=== PATIENT | female | born 1965 | race Caucasian/White ===

== ENCOUNTER 2016-12-10 17:15 | Emergency (ER) | payer MEDICAID | END 2016-12-10 17:30 | disposition home or self-care (01) | DX: Z76.0 Encounter for issue of repeat prescription (principal); M54.9 Dorsalgia, unspecified; G89.29 Other chronic pain; J45.909 Unspecified asthma, uncomplicated; F17.200 Nicotine dependence, unspecified, uncomplicated; R03.0 Elevated blood-pressure reading, without diagnosis of hypertension ==

== ENCOUNTER 2017-11-07 16:40 | Emergency (ER) | payer MEDICAID ==
[2017-11-07 16:48] VITALS: BP 155/90
[2017-11-07] MEDS ORDERED: DEXAMETHASONE 10 MG/ML VIAL PO STA (17:10)
--- NOTE | 2017-11-07 17:12 | ED Physician Documentation ---
History of Present Illness - Stated complaint Stated Complaint: MED REFILL - Chief complaint Chief Complaint: General - History obtained from History obtained from: Patient - History of Present Illness Timing: How many days ago (3) - Additonal information Additional information: 52-year-old female with a history of neuritis has recently moved back to [facility] from [place] and she has stopped taking OxyContin about a month ago and she has run out of oxycodone 2 days ago. She usually takes 600 mg of gabapentin 4 times a day and she is now run out of this as well and is asking for refill.She has had this issue previously a number of times moving back and forth between here in [place] [facility]. Review of Systems Constitutional: denies: Fever, Chills Eyes: denies: Decreased vision Ears: denies: Ear pain Nose: denies: Congestion Throat: denies: Sore throat Cardiac: denies: Chest pain / pressure, Palpitations Respiratory: denies: Dyspnea, Cough GI: denies: Abdominal Pain, Nausea, Vomiting, Diarrhea : denies: Dysuria, Frequency Skin: denies: Rash Musculoskeletal: reports: Back pain, Extremity pain, Extremity swelling. denies : Neck pain Neurologic: denies: Generalized weakness, Focal weakness, Numbness PD PAST MEDICAL HISTORY - Past Medical History Past Medical History: Yes Cardiovascular: None Respiratory: Asthma, Pneumonia Neuro: None Endocrine/Autoimmune: None GI: None DITCH TENDER: None : None HEENT: None Psych: None Musculoskeletal: Chronic back pain Derm: None - Past Surgical History Past Surgical History: Yes General: Cholecystectomy Ortho: Spine surgery /DITCH TENDER: section, Hysterectomy - Present Medications Home Medications: Ambulatory Orders Medication Instructions Recorded Confirmed Morphine ER [Morphine ER] 15 mg ORAL BID 08/03/16 11/07/17 Oxycodone HCl/Acetaminophen 1 each PO Q6H PRN #15 tablet 08/16/16 11/07/17 [Percocet 5-325 mg Tablet] Gabapentin 600 mg PO QID #30 tablet 12/10/16 11/07/17 Gabapentin [Gralise] 600 mg PO QID #40 tab.er.24h 11/07/17 - Allergies Allergies/Adverse Reactions: Allergies Allergy/AdvReac Type Severity Reaction Status Date / Time No Known Drug Allergies Allergy Verified 11/07/17 16:48 - Social History Does the pt smoke?: Yes Smoking Status: Current every day smoker Does the pt drink ETOH?: No Does the pt have substance abuse?: No - Immunizations Immunizations are current?: Yes Immunizations: TDAP >10years/unknown - POLST Patient has POLST: No PD ED PE NORMAL - Vitals Vital signs reviewed: Yes (Hypertensive and tachycardic to 100) - General General: Alert and oriented X 3, No acute distress, Well developed/nourished - HEENT HEENT: Atraumatic, PERRL, EOMI - Neck Neck: Supple, no meningeal sign - Respiratory Respiratory: No respiratory distress - Back Back: No CVA TTP - Derm Derm: Normal color, Warm and dry, No rash - Extremities Extremities: No deformity, Other (There is trace edema bilaterally and there is some postinflammatory hyperpigmentation on the right proximal anterior calf.) - Neuro Neuro: Alert and oriented X 3, field sales trainer 2-12 intact, No motor deficit, No sensory deficit, Normal speech Eye Opening: Spontaneous Motor: Obeys Commands Verbal: Oriented GCS Score: 15 - Psych Psych: Normal mood, Normal affect Results - Vitals Vitals: Vital Signs - 24 hr 11/07/17 16:46 Temperature 37.1 C Heart Rate 102 H Respiratory 18 Rate Blood Pressure 155/90 H O2 Saturation 98 Oxygen O2 Source [Without Activity] 4L via NC O2 Source Room air PD MEDICAL DECISION MAKING - ED course Complexity details: considered differential, d/w patient ED course: 52-year-old female who usually takes gabapentin 600 mg 4 times daily has run out. She has also run out of her narcotic is been 2 days and she has not had symptoms of withdrawal. I have offered to give the patient 10 mg of dexamethasone and we will refill her gabapentin. I have indicated to her that we are not able to provide narcotic prescription for as she is on narcotics chronically. Departure - Departure Disposition: 01 Home, Self Care Clinical Impression: Medication refill Condition: Stable Instructions: ED Neuropathy Peripheral Follow-Up: Kody Lang MD [Physician No Access] - Prescriptions: Gabapentin [Gralise] 600 mg PO QID #40 tab.er.24h
== END 2017-11-07 17:34 | disposition home or self-care (01) ==
LOC: ED 16:40
DX: M79.2 Neuralgia and neuritis, unspecified (principal); G89.29 Other chronic pain; F17.200 Nicotine dependence, unspecified, uncomplicated
CPT/HCPCS: 99282; 99283

== ENCOUNTER 2018-01-25 14:54 | Emergency (ER) | payer SELFPAY ==
[2018-01-25 15:27] LABS: BASOPHILS # (AUTO) 0.1 10^3/uL (0.0-0.1); BASOPHILS % (AUTO) 1.3 %; EOSINOPHILS # (AUTO) 0.1 10^3/uL (0.0-0.7); EOSINOPHILS % (AUTO) 1.1 %; HGB - HEMOGLOBIN 14.1 g/dL (12.0-16.0); LYMPHOCYTES # (AUTO) 3.4 10^3/uL (1.5-3.5); LYMPHOCYTES % (AUTO) 29.2 %; MEAN CORPUSCULAR HEMOGLOBIN 33.2 pg (27.0-31.0); MEAN CORPUSCULAR HGB CONC 34.1 g/dL (32.0-36.0); MEAN CORPUSCULAR VOLUME 97.4 fL (81.0-99.0); MEAN PLATELET VOLUME 7.1 fL (7.9-10.8); MONOCYTES # (AUTO) 0.5 10^3/uL (0.0-1.0); MONOCYTES % (AUTO) 4.4 %; NEUTROPHILS # (AUTO) 7.5 10^3/uL (1.5-6.6); PLT - PLATELET COUNT 287 10^3/uL (130-450); RED BLOOD COUNT 4.26 10^6/uL (4.20-5.40); RED CELL DISTRIBUTION WIDTH 13.5 % (12.0-15.0); WHITE BLOOD COUNT 11.6 x10^3/uL (4.8-10.8)
[2018-01-25 15:39] LABS: ALBUMIN 4.1 g/dL (3.2-5.5); ALBUMIN/GLOBULIN RATIO 1.1 (1.0-2.2); ALKALINE PHOSPHATASE 69 IU/L (42-121); ALT ALANINE AMINOTRANSFERASE < 10 IU/L (10-60); AST ASPARTATE AMINOTRANSFERASE 15 IU/L (10-42); BILIRUBIN,TOTAL 0.5 mg/dL (0.2-1.0); BUN - BLOOD UREA NITROGEN 11 mg/dL (6-20); CALCIUM 9.4 mg/dL (8.5-10.3); CARBON DIOXIDE - CO2 24 mmol/L (21-32); CHLORIDE 107 mmol/L (101-111); CREATININE 0.7 mg/dL (0.4-1.0); GFR - MDRD 88 (>89); GLUCOSE 141 mg/dL (70-100); LIPASE 46 U/L (22-51); SODIUM 139 mmol/L (135-145)
[2018-01-25 15:40] VITALS: BP 141/93
[2018-01-25] MEDS ORDERED: KETOROLAC 60 MG/2 ML VIAL IVP STA (17:58)
[2018-01-25] MEDS ORDERED: ONDANSETRON 4 MG/2 ML VIAL IVP STA (17:58)
[2018-01-25] MEDS ORDERED: FAMOTIDINE 20 MG TABLET PO STA (17:58)
[2018-01-25] MEDS ORDERED: SODIUM CHLORIDE 0.9% 1,000 ML IV ONE (17:58)
[2018-01-25 18:09] LABS: BILIRUBIN,URINE NEGATIVE (NEGATIVE); GLUCOSE, URINE (UA) NEGATIVE (NEGATIVE); KETONES,URINE (UA) NEGATIVE (NEGATIVE); LEUKOCYTE ESTERASE, URINE NEGATIVE (NEGATIVE); NITRITE,URINE NEGATIVE (NEGATIVE); OCCULT BLOOD,URINE NEGATIVE (NEGATIVE); PH,URINE 5.5 PH (5.0-7.5); PROTEIN,URINE NEGATIVE (NEGATIVE); UROBILINOGEN,URINE 0.2 (NORMAL) E.U./dL (NORMAL)
[2018-01-25] MEDS ORDERED: IOPAMIDOL-300 100 ML VIAL ONE (18:09)
[2018-01-25 18:20] LABS: CLARITY,URINE CLEAR (CLEAR); HCG UR QUAL NEGATIVE
[2018-01-25] MEDS ORDERED: IOPAMIDOL-300 100 ML VIAL IVP ONE (18:24)
--- NOTE | 2018-01-25 19:07 | CT Preliminary Report ---
Exam: CT ABDOMEN/PELVIS W/ IMPRESSION: 1. 5.8 x 3.5 x 4.0 cm fat filled hernia left lateral mid anterior abdominal wall, approximately 7 cm superior to the typical spigelian hernia site. Small amount of uniform edema within the hernia sac as well as the subjacent intra-abdominal mesentery consistent with some degree of vascular compromise/e ntrapment. No bowel involvement. 2. Thoracic epidural neurostimulator. [facility] SITE ID: [id number]
--- NOTE | 2018-01-25 19:18 | CT Report ---
EXAM: CT ABDOMEN AND PELVIS EXAM DATE: 01/25/2018 06:15 PM. CLINICAL HISTORY: Cholecystectomy, appendectomy, three C-sections, back surgery, nerve stimulator imp lant. Multiple abdominal hernia repairs. Patient presents now with left upper abdominal pain. COMPARISONS: 03/24/2009. Chest CT 06/30/2015. TECHNIQUE: Routine helical CT imaging was performed through the abdomen and pelvis. IV contrast: 100 mL ISOVUE 300. Enteric contrast: No. Reconstructions: Coronal and sagittal. In accordance with CT protocol optimization, one or more of the following dose reduction techniques w ere utilized for this exam: automated exposure control, adjustment of mA and/or KV based on patient s ize, or use of iterative reconstructive technique. FINDINGS: Lung Bases: Unremarkable. Liver: Fatty infiltration. Gallbladder/Bile Ducts: Cholecystectomy. No biliary duct dilatation. Spleen: Normal. Pancreas: Normal. Adrenal Glands: Normal. Kidneys: Normal. No masses or hydronephrosis. Peritoneal Cavity/Bowel: Previous infraumbilical ventral hernia repair. New 5.8 x 3.5 x 4 cm fat-filled hernia left mid anterior abdominal wall, at the level of the umbilicu s. Small amount of edema within this hernia, as well as a small amount of edema in the subjacent omen mauricio. No involvement of the bowel. Hernia neck measures 1.8 cm. Large and small bowel of normal caliber. No free air, adenopathy nor free fluid. Appendectomy. Pelvic Organs: Hysterectomy. No stones in the small caliber urinary bladder. No free fluid nor adnexa l mass lesions. Vasculature: No aneurysms or other significant abnormality. Bones: Thoracic epidural neurostimulator with the generator located in the anterior subcutaneous soft tissues right pelvis. Remote L4-L5 and L5-S1 fusion. Other: None. IMPRESSION: 1. 5.8 x 3.5 x 4.0 cm fat-filled hernia left lateral mid anterior abdominal wall, approximately 7 cm superior to the typical spigelian hernia site. Small amount of uniform edema within the hernia sac, a s well as the subjacent intra-abdominal mesentery consistent with some degree of vascular compromise/ entrapment. No bowel involvement. 2. Thoracic epidural neurostimulator. [facility] Referring Provider Line: [phone] SITE ID: [id number]
--- NOTE | 2018-01-25 19:55 | ED Physician Documentation ---
PD HPI ABD PAIN - Stated complaint Stated Complaint: ABD PX - Chief complaint Chief Complaint: Abd Pain - History obtained from History obtained from: Patient - History of Present Illness Timing - onset: How many weeks ago (2-3 of worse pain, with intermittent vomiting and has noted some weight loss due to nausea and pain with eating. Has tenderness left abd hernia for about 4 months, but nausea and worse pain the past 2-3 weeks. Seen in office with Dx of hernia and is having referrals for Surgery but insurance issues with coverage, per patient.) Timing - details: Gradual onset, Intermittant, Waxing and waning Quality: Aching, Sharp, Pain Location: LLQ (with a lump feeling there as well.) Radiation: Lower back Improved by: Laying still. No: Eating Worsened by: Eating, Moving, Position (left side), Palpation Associated symptoms: Nausea, Vomiting. No: Fever, Diarrhea, Constipation, Dysuria, Hematuria Similar symptoms before: Diagnosis (incisional hernia) Recently seen: Clinic Review of Systems Constitutional: denies: Fever, Chills Nose: denies: Rhinorrhea / runny nose, Congestion Throat: denies: Sore throat Cardiac: denies: Chest pain / pressure, Palpitations Respiratory: denies: Dyspnea, Cough GI: reports: Abdominal Pain, Nausea, Vomiting. denies: Constipation, Diarrhea ( but loose stools) : denies: Dysuria, Frequency Skin: denies: Rash, Lesions PD PAST MEDICAL HISTORY - Past Medical History Past Medical History: Yes Cardiovascular: None Respiratory: Asthma, Pneumonia Neuro: None Endocrine/Autoimmune: None GI: None PRISON CLASSIFICATION COUNSELOR: None : None HEENT: None Psych: None Musculoskeletal: Chronic back pain Derm: None - Past Surgical History Past Surgical History: Yes General: Cholecystectomy Ortho: Spine surgery /PRISON CLASSIFICATION COUNSELOR: section, Hysterectomy - Present Medications Home Medications: Ambulatory Orders Medication Instructions Recorded Confirmed Morphine ER [Morphine ER] 15 mg ORAL BID 08/03/16 01/25/18 Oxycodone HCl/Acetaminophen 1 each PO Q6H PRN #15 tablet 08/16/16 01/25/18 [Percocet 5-325 mg Tablet] Gabapentin 600 mg PO QID #30 tablet 12/10/16 01/25/18 Gabapentin [Gralise] 600 mg PO QID #40 tab.er.24h 11/07/17 01/25/18 Docusate Sodium 100 mg PO DAILY #30 capsule 01/25/18 Gabapentin 600 mg PO QID #28 tablet 01/25/18 Ondansetron HCl [Zofran] 4 mg PO Q6H PRN #20 tablet 01/25/18 Oxycodone HCl/Acetaminophen 1 each PO Q6H PRN #20 tablet 01/25/18 [Percocet 5-325 mg Tablet] - Allergies Allergies/Adverse Reactions: Allergies Allergy/AdvReac Type Severity Reaction Status Date / Time No Known Drug Allergies Allergy Verified 01/25/18 17:43 - Social History Does the pt smoke?: Yes Smoking Status: Current every day smoker Does the pt drink ETOH?: No Does the pt have substance abuse?: No - Immunizations Immunizations are current?: Yes Immunizations: TDAP >10years/unknown - POLST Patient has POLST: No PD ED PE NORMAL - Vitals Vital signs reviewed: Yes - General General: Alert and oriented X 3, No acute distress, Well developed/nourished - HEENT HEENT: Moist mucous membranes, Pharynx benign - Neck Neck: Supple, no meningeal sign, No adenopathy - Cardiac Cardiac: RRR, No murmur - Respiratory Respiratory: Clear bilaterally - Abdomen Abdomen: Normal bowel sounds, Soft, Non distended, No organomegaly, Other ( tender left mid to lower abd with palpable hernia mass that is reducible but tender. No redness nor rash of the skin. ) - Female Female : Deferred - Rectal Rectal: Deferred - Back Back: No CVA TTP - Derm Derm: Normal color, Warm and dry, No rash - Neuro Neuro: Alert and oriented X 3, No motor deficit, Normal speech Results - Vitals Vitals: Vital Signs - 24 hr 01/25/18 15:04 Temperature 36.9 C Heart Rate 106 H Respiratory 18 Rate Blood Pressure 141/93 H O2 Saturation 100 Oxygen O2 Source [Without Activity] 4L via NC O2 Source Room air - Labs Labs: Laboratory Tests 01/25/18 01/25/18 01/25/18 15:24 15:24 17:45 WBC 11.6 H RBC 4.26 Hgb 14.1 Hct 41.5 MCV 97.4 MCH 33.2 H MCHC 34.1 RDW 13.5 Plt Count 287 MPV 7.1 L Neut # 7.5 H Lymph # 3.4 [place] # 0.5 Eos # 0.1 Baso # 0.1 Absolute Nucleated RBC 0.01 Nucleated RBC % 0.1 Sodium 139 Potassium 3.6 Chloride 107 Carbon Dioxide 24 Anion Gap 8.0 BUN 11 Creatinine 0.7 Estimated GFR (MDRD) 88 L Glucose 141 H Calcium 9.4 Total Bilirubin 0.5 AST 15 ALT < 10 L Alkaline Phosphatase 69 Total Protein 8.0 Albumin 4.1 Globulin 3.9 Albumin/Globulin Ratio 1.1 Lipase 46 Urine Color YELLOW Urine Clarity CLEAR Urine pH 5.5 Ur Specific [place] 1.015 Urine Protein NEGATIVE Urine Glucose (UA) NEGATIVE Urine Ketones NEGATIVE Urine Occult Blood NEGATIVE Urine Nitrite NEGATIVE Urine Bilirubin NEGATIVE Urine Urobilinogen 0.2 (NORMAL) Ur Leukocyte Esterase NEGATIVE Ur Microscopic Review NOT INDICATED Urine Culture Comments NOT INDICATED Urine HCG, Qual NEGATIVE - Rads (name of study) abd CT Radiology: Prelim report reviewed (incisional hernia left side with some wall edema c/w vascular compromise of the hernia. No blockage/obstruction. ), EMP read contemporaneously PD MEDICAL DECISION MAKING - ED course Complexity details: reviewed results, considered differential, d/w patient, d/w professional housing consultant (Dr. Raleigh Nguyễn - is not Urgent/emergent indication for surgery. To follow up through office referral. ) Departure - Departure Disposition: 01 Home, Self Care Clinical Impression: Ventral hernia Qualifiers: Obstruction and gangrene presence: without obstruction or gangrene Qualified Code(s): K43.9 - Ventral hernia without obstruction or gangrene Abdominal pain Qualifiers: Abdominal location: left lower quadrant Qualified Code(s): R10.32 - Left lower quadrant pain Condition: Stable Record reviewed to determine appropriate education?: Yes Instructions: ED Hernia Inguinal Follow-Up: Anni Haas MD [Provider Admit Priv/Credential] - Toribio Nguyễn MD [Provider Admit Priv/Credential] - Prescriptions: Docusate Sodium 100 mg PO DAILY #30 capsule Gabapentin 600 mg PO QID #28 tablet Ondansetron HCl [Zofran] 4 mg PO Q6H PRN #20 tablet PRN Reason: Nausea / Vomiting Oxycodone HCl/Acetaminophen [Percocet 5-325 mg Tablet] 1 each PO Q6H PRN #20 tablet PRN Reason: Pain Comments: Drink lots of fluids. Ondansetron if needed for nausea. Docusate daily stool softener. Use Tylenol or Percocet if needed for pain. Follow-up with your primary care regarding the surgery referral and try to see if they can expedite that. Contact the surgery office. Discharge Date/Time: 01/25/18 20:09
== END 2018-01-25 20:09 | disposition home or self-care (01) ==
LOC: ED 14:54
DX: K43.9 Ventral hernia without obstruction or gangrene (principal); R10.32 Left lower quadrant pain; F17.200 Nicotine dependence, unspecified, uncomplicated
CPT/HCPCS: 36415; 74177; 80053; 81003; 81025; 83690; 85025; 96374; 96375; 99283; 99284; A9270; Q9967; 81001; 87086

== ENCOUNTER 2018-04-08 14:16 | Emergency (ER) | payer MEDICAID ==
--- NOTE | 2018-04-08 15:29 | ED Physician Documentation ---
History of Present Illness - Stated complaint Stated Complaint: MED REFILL - Chief complaint Chief Complaint: General - History obtained from History obtained from: Patient - Additonal information Additional information: 52-year-old female who takes Neurontin on a daily basis recently ran out secondaryTo changing physicians. The patient is scheduled to see her new physician this coming week. The patient is requesting a short supply until she sees her new physician. The patient has no acute medical complaint. Review of Systems Constitutional: denies: Fever, Chills Nose: denies: Congestion Cardiac: denies: Chest pain / pressure GI: denies: Abdominal Pain : denies: Dysuria Neurologic: denies: Generalized weakness PD PAST MEDICAL HISTORY - Past Medical History Past Medical History: Yes Cardiovascular: None Respiratory: Asthma, Pneumonia Endocrine/Autoimmune: None GI: None COUNCILOR: None : None HEENT: None Psych: None Musculoskeletal: Chronic back pain Derm: None - Past Surgical History Past Surgical History: Yes General: Cholecystectomy Ortho: Spine surgery /COUNCILOR: section, Hysterectomy - Present Medications Home Medications: Ambulatory Orders Medication Instructions Recorded Confirmed Gabapentin 600 mg PO QID #28 tablet 01/25/18 Gabapentin [Neurontin] 600 mg PO QID #40 tablet 04/08/18 - Allergies Allergies/Adverse Reactions: Allergies Allergy/AdvReac Type Severity Reaction Status Date / Time No Known Drug Allergies Allergy Verified 04/08/18 15:02 - Social History Does the pt smoke?: Yes Smoking Status: Current every day smoker Does the pt drink ETOH?: No Does the pt have substance abuse?: No - Immunizations Immunizations are current?: Yes Immunizations: TDAP >10years/unknown - POLST Patient has POLST: No PD ED PE NORMAL - General General: Alert and oriented X 3, No acute distress - HEENT HEENT: Atraumatic, PERRL, EOMI - Cardiac Cardiac: RRR, Strong equal pulses - Respiratory Respiratory: No respiratory distress - Neuro Neuro: Alert and oriented X 3, Normal speech - Psych Psych: Normal mood Results - Vitals Vitals: Vital Signs - 24 hr 04/08/18 15:00 Temperature 36.9 C Heart Rate 84 Respiratory 22 Rate Blood Pressure 146/111 H O2 Saturation 100 Oxygen O2 Source [Without Activity] 4L via NC O2 Source Room air PD MEDICAL DECISION MAKING - ED course ED course: The patient will be given a prescription for short supply of Neurontin. The patient understands that she cannot get refills on a regular basis in the emergency department. The patient will return for any worsening or any concerns - Sepsis Event Vital Signs: Vital Signs - 24 hr 04/08/18 15:00 Temperature 36.9 C Heart Rate 84 Respiratory 22 Rate Blood Pressure 146/111 H O2 Saturation 100 Oxygen O2 Source [Without Activity] 4L via NC O2 Source Room air Departure - Departure Disposition: Home, Self Care Clinical Impression: Medication refill Condition: Good Prescriptions: Gabapentin [Neurontin] 600 mg PO QID #40 tablet Comments: Please follow-up with your primary care physician for ongoing medication refills. Please return to the emergency department for worsening symptoms or new concerns
[2018-04-08 15:46] VITALS: BP 159/101
== END 2018-04-08 15:50 | disposition home or self-care (01) ==
LOC: ED 14:16
DX: Z76.0 Encounter for issue of repeat prescription (principal); F17.200 Nicotine dependence, unspecified, uncomplicated; G89.29 Other chronic pain; M54.9 Dorsalgia, unspecified
CPT/HCPCS: 99282; 99283

== ENCOUNTER 2018-08-02 16:53 | Emergency (ER) | payer MEDICAID ==
[2018-08-02 17:05] VITALS: BP 137/85
--- NOTE | 2018-08-02 17:37 | ED Physician Documentation ---
History of Present Illness - Stated complaint Stated Complaint: MED REFILL - Chief complaint Chief Complaint: General - Additonal information Additional information: hx from pt 53 f to ED needing refill gabapentin 600 mg QID which is the dose she has been taking for a ling time for neuropathy otherwise well / baseline needs 2 weeks before her appt with PMD Review of Systems Constitutional: denies: Fever Cardiac: denies: Chest pain / pressure Respiratory: reports: Wheezing (not new for her - smokes uses [facility]). denies: Dyspnea GI: denies: Abdominal Pain, Nausea, Vomiting, Diarrhea Endocrine: denies: Easy bruising / bleeding Immunocompromised: denies: Immunocompromised PD PAST MEDICAL HISTORY - Past Medical History Cardiovascular: None Respiratory: Asthma, Pneumonia Endocrine/Autoimmune: None GI: None COMMUNITY ENGAGEMENT REPRESENTATIVE: None : None HEENT: None Psych: None Musculoskeletal: Chronic back pain Derm: None - Past Surgical History Past Surgical History: Yes General: Cholecystectomy Ortho: Spine surgery /COMMUNITY ENGAGEMENT REPRESENTATIVE: section, Hysterectomy - Present Medications Home Medications: Ambulatory Orders Medication Instructions Recorded Confirmed Gabapentin 600 mg PO QID #28 tablet 01/25/18 Gabapentin [Neurontin] 600 mg PO QID #40 tablet 04/08/18 Gabapentin 600 mg PO QID #56 tablet 08/02/18 - Allergies Allergies/Adverse Reactions: Allergies Allergy/AdvReac Type Severity Reaction Status Date / Time No Known Drug Allergies Allergy Verified 08/02/18 17:02 - Social History Does the pt smoke?: Yes Smoking Status: Current every day smoker Does the pt drink ETOH?: No Does the pt have substance abuse?: No - Immunizations Immunizations are current?: Yes Immunizations: TDAP >10years/unknown - POLST Patient has POLST: No PD ED PE NORMAL - Vitals Vital signs reviewed: Yes - Cardiac Cardiac: RRR - Respiratory Respiratory: No respiratory distress, Other (mild whhezing good air moveemnt - pt states she smokes (is quitting) and this is now new, has NMDI) - Abdomen Abdomen: Soft, Non tender - Derm Derm: Normal color - Neuro Neuro: Alert and oriented X 3 Results - Vitals Vitals: Vital Signs - 24 hr 08/02/18 16:57 Temperature 37 C Heart Rate 88 Respiratory 16 Rate Blood Pressure 137/85 H O2 Saturation 99 Oxygen O2 Source [Without Activity] 4L via NC O2 Source Room air Departure - Departure Disposition: 01 Home, Self Care Clinical Impression: Medication refill Condition: Good Prescriptions: Gabapentin 600 mg PO QID #56 tablet
== END 2018-08-02 18:12 | disposition home or self-care (01) ==
LOC: ED 16:53
DX: Z76.0 Encounter for issue of repeat prescription (principal); G62.9 Polyneuropathy, unspecified; F17.200 Nicotine dependence, unspecified, uncomplicated
CPT/HCPCS: 99282; 99283

== ENCOUNTER 2018-08-19 18:16 | Emergency (ER) | payer MEDICAID ==
[2018-08-19 18:26] VITALS: BP 149/91
--- NOTE | 2018-08-19 18:48 | ED Physician Documentation ---
History of Present Illness - Stated complaint Stated Complaint: RX REFILL - Chief complaint Chief Complaint: General - History obtained from History obtained from: Patient - History of Present Illness Timing: Other (She has chronic back pain with neuropathy. She ran out of her gabapentin a few days ago and requests a refill. No other acute issues.) Review of Systems Constitutional: denies: Fever, Chills GI: denies: Abdominal Pain, Nausea, Vomiting : reports: Reviewed and negative PD PAST MEDICAL HISTORY - Past Medical History Cardiovascular: None Respiratory: Asthma, Pneumonia Endocrine/Autoimmune: None GI: None TRIM ATTACHER: None : None HEENT: None Psych: None Musculoskeletal: Chronic back pain Derm: None - Past Surgical History Past Surgical History: Yes General: Cholecystectomy Ortho: Spine surgery /TRIM ATTACHER: section, Hysterectomy - Present Medications Home Medications: Ambulatory Orders Medication Instructions Recorded Confirmed Gabapentin [Neurontin] 600 mg PO QID #40 tablet 04/08/18 Gabapentin 2 tab PO BID #40 capsule 08/19/18 - Allergies Allergies/Adverse Reactions: Allergies Allergy/AdvReac Type Severity Reaction Status Date / Time No Known Drug Allergies Allergy Verified 08/19/18 18:26 - Social History Does the pt smoke?: Yes Smoking Status: Current every day smoker Does the pt drink ETOH?: No Does the pt have substance abuse?: No - Immunizations Immunizations are current?: Yes Immunizations: TDAP >10years/unknown - POLST Patient has POLST: No PD ED PE NORMAL - Vitals Vital signs reviewed: Yes - General General: Alert and oriented X 3, No acute distress - Back Back: No spinal TTP - Neuro Neuro: Alert and oriented X 3, Normal speech - Psych Psych: Normal mood, Normal affect Results - Vitals Vitals: Vital Signs - 24 hr 08/19/18 18:23 Temperature 37.6 C H Heart Rate 115 H Respiratory 20 Rate Blood Pressure 149/91 H O2 Saturation 98 Oxygen O2 Source [Without Activity] 4L via NC O2 Source Room air PD MEDICAL DECISION MAKING - ED course ED course: This is her fourth visit to the emergency department this year for medication refill. We discussed that this was approaching inappropriate and further prescriptions must come from her primary care physician. Departure - Departure Disposition: 01 Home, Self Care Clinical Impression: Medication refill Back pain Qualifiers: Back pain location: low back pain Chronicity: chronic Back pain laterality: unspecified Sciatica presence: unspecified whether sciatica present Qualified Code(s): M54.5 - Low back pain; G89.29 - Other chronic pain Condition: Good Record reviewed to determine appropriate education?: Yes Instructions: ED Chronic Pain Management Prescriptions: Gabapentin 2 tab PO BID #40 capsule Comments: The policy of this emergency department is to not give more than 3 prescriptions for narcotics or other controlled substances in any 1 year. I encourage you to follow up with your primary care physician or to establish care with a primary care physician for ongoing pain management. You are always welcome to seek emergency care here for this or new issues but there will likely be limitations in the prescription of gabapentin. Your blood pressure was elevated today on check into the emergency department. This does not mean that you have hypertension, it is a common phenomenon to come to the emergency department and have elevated blood pressure. I recommend that you see your primary care physician within the week to have it rechecked when you are feeling better.
== END 2018-08-19 18:49 | disposition home or self-care (01) ==
LOC: ED 18:16
DX: Z76.0 Encounter for issue of repeat prescription (principal); G89.29 Other chronic pain; R03.0 Elevated blood-pressure reading, without diagnosis of hypertension; F17.200 Nicotine dependence, unspecified, uncomplicated
CPT/HCPCS: 99281; 99283

== ENCOUNTER 2018-10-08 20:09 | Emergency (ER) | payer MEDICAID ==
--- NOTE | 2018-10-08 21:08 | ED Physician Documentation ---
PD HPI ABD PAIN - Stated complaint Stated Complaint: ABD PX - Chief complaint Chief Complaint: Abd Pain - History obtained from History obtained from: Patient - History of Present Illness Timing - onset: Chronic Timing - details: Gradual onset, Waxing and waning Pain level now: 8 Quality: Pain Location: RLQ, LLQ Radiation: Other (no radiation) Improved by: Laying still Worsened by: Moving, Palpation Associated symptoms: No: Fever, Nausea, Vomiting, Diarrhea, Constipation Recently seen: Emergency Dept (two visits in July for rx refills) - Additional information Additional information: per patient: "a few things I need to get fixed", "but I'm having trouble with getting a physician because of my state insurance". 1) RLQ and right groin pain which patient says is due to a spinal cord stimulating device that has "moved". 2) LLQ pain which patient says is due to hernias. she says she was referred to a surgeon, she thinks in April or May of last year, but there was some problem with her insurance and the referring physician (Samina) was no longer able to take patient's insurance. Patient says she is trying to find a PMD but has been unsuccessful. 3) protrusion on right paralumbar area which she says is new and she suspects it is the wiring of her spinal cord stimulator Review of Systems Constitutional: reports: Reviewed and negative Cardiac: reports: Reviewed and negative Respiratory: reports: Reviewed and negative GI: reports: Abdominal Pain. denies: Nausea, Vomiting, Constipation, Diarrhea : denies: Dysuria, Frequency Musculoskeletal: reports: Back pain PD PAST MEDICAL HISTORY - Past Medical History Cardiovascular: None Respiratory: Asthma, Pneumonia Endocrine/Autoimmune: None GI: None POLYSOMNOGRAPH TECH: None : None HEENT: None Psych: None Musculoskeletal: Chronic back pain Derm: None - Past Surgical History Past Surgical History: Yes General: Cholecystectomy Ortho: Spine surgery /POLYSOMNOGRAPH TECH: section, Hysterectomy - Present Medications Home Medications: Ambulatory Orders Medication Instructions Recorded Confirmed Gabapentin [Neurontin] 600 mg PO QID #40 tablet 04/08/18 10/08/18 Oxycodone HCl/Acetaminophen 1 - 2 each PO Q6H PRN #14 tablet 10/09/18 [Percocet 5-325 mg Tablet] - Allergies Allergies/Adverse Reactions: Allergies Allergy/AdvReac Type Severity Reaction Status Date / Time No Known Drug Allergies Allergy Verified 10/08/18 20:13 - Social History Does the pt smoke?: Yes Smoking Status: Current every day smoker Does the pt drink ETOH?: No Does the pt have substance abuse?: No - Immunizations Immunizations are current?: Yes Immunizations: TDAP >10years/unknown - POLST Patient has POLST: No PD ED PE NORMAL - Vitals Vital signs reviewed: Yes - General General: Alert and oriented X 3, No acute distress, Well developed/nourished - Cardiac Cardiac: RRR, No murmur - Respiratory Respiratory: No respiratory distress, Clear bilaterally - Abdomen Abdomen: Soft, Non distended, Other (tender across lower abdomen, particularly in BLQ. There is a palpable, visible RLQ mass c/w spinal cord stimulator (sharp margins, rectangular in shape) without erythema or edema. LLQ tenderness without rebound or guarding. no palpable hernia) - Derm Derm: Normal color, Warm and dry, No rash Results - Vitals Vitals: Vital Signs - 24 hr 10/08/18 10/08/18 10/09/18 20:14 23:02 00:01 Temperature 37.0 C 36.9 C Heart Rate 110 H 93 91 Respiratory 18 18 16 Rate Blood Pressure 146/94 H 133/77 H 117/73 O2 Saturation 100 97 96 Oxygen O2 Source [] 4L via NC O2 Source Room air - Labs Labs: Laboratory Tests 10/08/18 10/08/18 21:54 21:54 WBC 12.7 H RBC 4.28 Hgb 14.0 Hct 42.3 MCV 98.6 MCH 32.7 H MCHC 33.2 RDW 14.4 Plt Count 251 MPV 7.4 L Neut # (Auto) 8.1 H Lymph # (Auto) 3.6 H [place] # (Auto) 0.7 Eos # (Auto) 0.2 Baso # (Auto) 0.1 Absolute Nucleated RBC 0.01 Nucleated RBC % 0.1 Sodium 141 Potassium 3.9 Chloride 108 Carbon Dioxide 24 Anion Gap 9.0 BUN 14 Creatinine 0.7 Estimated GFR (MDRD) 87 L Glucose 119 H Calcium 9.2 Total Bilirubin 0.3 AST 16 ALT 13 Alkaline Phosphatase 65 Total Protein 7.7 Albumin 4.1 Globulin 3.6 Albumin/Globulin Ratio 1.1 Lipase 42 - Rads (name of study) CT A/P Radiology: Prelim report reviewed, See rad report PD MEDICAL DECISION MAKING - ED course Complexity details: considered differential, d/w patient ED course: Patient had similar [facility] ED presentation January 2018, and problems with insurance were part of HPI on that visit, as well. w/u at this time is unremarkable for acute pathology. emphasized importance of continuing to pursue outpatient f/u for her recurrent abdominal pain Departure - Departure Disposition: Home, Self Care Clinical Impression: Abdominal pain Condition: Good Instructions: ED Abdominal Pain Unkn Cause Follow-Up: [facility] [Provider Group] [facility] [Provider Group] Prescriptions: Oxycodone HCl/Acetaminophen [Percocet 5-325 mg Tablet] 1 - 2 each PO Q6H PRN #14 tablet PRN Reason: pain Discharge Date/Time: 10/09/18 00:30
[2018-10-08 21:57] LABS: BASOPHILS # (AUTO) 0.1 10^3/uL (0.0-0.1); BASOPHILS % (AUTO) 0.8 %; EOSINOPHILS # (AUTO) 0.2 10^3/uL (0.0-0.7); EOSINOPHILS % (AUTO) 1.8 %; LYMPHOCYTES # (AUTO) 3.6 10^3/uL (1.5-3.5); LYMPHOCYTES % (AUTO) 28.4 %; MEAN CORPUSCULAR HEMOGLOBIN 32.7 pg (27.0-31.0); MEAN CORPUSCULAR HGB CONC 33.2 g/dL (32.0-36.0); MEAN CORPUSCULAR VOLUME 98.6 fL (81.0-99.0); MEAN PLATELET VOLUME 7.4 fL (7.9-10.8); MONOCYTES # (AUTO) 0.7 10^3/uL (0.0-1.0); MONOCYTES % (AUTO) 5.5 %; NEUTROPHILS # (AUTO) 8.1 10^3/uL (1.5-6.6); NEUTROPHILS % (AUTO) 63.5 %; PLT - PLATELET COUNT 251 10^3/uL (130-450); RED BLOOD COUNT 4.28 10^6/uL (4.20-5.40); RED CELL DISTRIBUTION WIDTH 14.4 % (12.0-15.0); WHITE BLOOD COUNT 12.7 x10^3/uL (4.8-10.8)
[2018-10-08 22:12] LABS: ALBUMIN 4.1 g/dL (3.2-5.5); ALBUMIN/GLOBULIN RATIO 1.1 (1.0-2.2); BILIRUBIN,TOTAL 0.3 mg/dL (0.2-1.0); CALCIUM 9.2 mg/dL (8.5-10.3); CREATININE 0.7 mg/dL (0.4-1.0); TOTAL PROTEIN 7.7 g/dL (6.7-8.2)
[2018-10-08] MEDS ORDERED: IOVERSOL 320 100 ML VIAL IVP ONE ×2 (22:28→22:56)
--- NOTE | 2018-10-08 23:15 | CT Report ---
Reason: abd. pain Procedure Date: 10/08/2018 Accession Number: [id number] / [id number] Procedure: CT - Abdomen/Pelvis W/ CPT Code: FULL RESULT: EXAM: CT ABDOMEN AND PELVIS EXAM DATE: 10/08/2018 10:47 PM. CLINICAL HISTORY: Abd. pain. COMPARISONS: ABDOMEN/PELVIS W/ 01/25/2018 6:15 PM. TECHNIQUE: Routine helical CT imaging was performed through the abdomen and pelvis. IV contrast: OPTIRAY 320 100mL. Enteric contrast: No. Reconstructions: Coronal and sagittal. In accordance with CT protocol optimization, one or more of the following dose reduction techniques were utilized for this exam: automated exposure control, adjustment of mA and/or KV based on patient size, or use of iterative reconstructive technique. FINDINGS: Lung Bases: Unremarkable. Liver: Normal. No masses. Gallbladder/Bile Ducts: Postoperative changes of cholecystectomy. No biliary dilatation. Spleen: Normal. Pancreas: Normal. Adrenal Glands: Normal. Kidneys: Normal. No masses or hydronephrosis. Peritoneal Cavity/Bowel: Normal. No free fluid, free air or adenopathy. No masses or acute inflammatory process. The appendix is well visualized and normal. Pelvic Organs: Normal. The bladder and visualized pelvic organs are within normal limits. Vasculature: No aneurysms or other significant abnormality. Bones: Degenerative changes. Postoperative changes in the lumbar spine. Other: Previous anterior abdominal wall hernia repair appears unchanged. Spinal stimulator appears stable. IMPRESSION: No evident etiology for patient's pain. RADIA
[2018-10-09 00:01] VITALS: BP 117/73
[2018-10-09] MEDS ORDERED: oxyCODONE 5 MG TABLET PO STA (00:27)
== END 2018-10-09 00:30 | disposition home or self-care (01) ==
LOC: ED 20:09
DX: R10.32 Left lower quadrant pain (principal); R10.31 Right lower quadrant pain; F17.200 Nicotine dependence, unspecified, uncomplicated
CPT/HCPCS: 36415; 74177; 80053; 83690; 85025; 99283; A9270; Q9967

== ENCOUNTER 2019-01-11 11:33 | Emergency (ER) | payer MEDICAID ==
[2019-01-11 11:47] VITALS: BP 146/116
[2019-01-11] MEDS ORDERED: KETOROLAC 30 MG/ML VIAL IVP STA (12:08)
--- NOTE | 2019-01-11 12:12 | ED Physician Documentation ---
PD HPI ABD PAIN - Stated complaint Stated Complaint: LOWER ABD PX - Chief complaint Chief Complaint: Abd Pain - History obtained from History obtained from: Patient - History of Present Illness Timing - onset: Other (53-year-old woman with chronic back pain has been dealing with pain from a left-sided mid abdominal hernia for a couple of years now. She has an appointment to see a surgeon at [facility] on January 27 for consult. Over the last 3 days it has been more painful and difficult to walk and now the pain radiates up towards the rib cage and down towards the groin. She is vomiting, but that is a chronic phenomenon and not worse than normal. Her bowel movements have been fairly normal to soft, but it hurts to strain.) Review of Systems Ten Systems: 10 systems reviewed and negative Constitutional: denies: Fever, Chills GI: reports: Abdominal Pain, Nausea, Vomiting. 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 : None HEENT: None Psych: None Musculoskeletal: Chronic back pain Derm: None - Past Surgical History Past Surgical History: Yes General: Cholecystectomy Ortho: Spine surgery /PAINTER AND BODY MECHANIC APPRENTICE: section, Hysterectomy - Present Medications Home Medications: Ambulatory Orders Medication Instructions Recorded Confirmed Gabapentin [Neurontin] 600 mg PO QID #40 tablet 04/08/18 01/11/19 Hydrocodone/Acetaminophen 1 - 2 each PO Q6H PRN #20 tablet 01/11/19 [Hydrocodon-Acetaminophen 5-325] Sulfamethoxazole/Trimethoprim 1 each PO BID #14 tablet 01/11/19 [Sulfamethoxazole-Tmp Ds Tablet] - Allergies Allergies/Adverse Reactions: Allergies Allergy/AdvReac Type Severity Reaction Status Date / Time No Known Drug Allergies Allergy Verified 01/11/19 11:47 - Social History Does the pt smoke?: Yes Smoking Status: Current every day smoker Does the pt drink ETOH?: No Does the pt have substance abuse?: No Substance Use and Type: Marijuana - Family History Family history: reports: Non contributory - Immunizations Immunizations are current?: Yes Immunizations: TDAP >10years/unknown - POLST Patient has POLST: No PD ED PE NORMAL - Vitals Vital signs reviewed: Yes - General General: Alert and oriented X 3, No acute distress - HEENT HEENT: PERRL, EOMI - Neck Neck: Supple, no meningeal sign, No bony TTP - Cardiac Cardiac: RRR, No murmur - Respiratory Respiratory: No respiratory distress, Clear bilaterally - Abdomen Abdomen: Normal bowel sounds, Soft, Other (Mild diffuse abdominal tenderness with more significant tenderness in the left midabdomen, but I do not appreciate an obvious hernia, there may be a deep 1. There are no skin changes.) - Back Back: No CVA TTP, No spinal TTP - Derm Derm: Normal color, Warm and dry - Extremities Extremities: No edema, No calf tenderness / cord - Neuro Neuro: Alert and oriented X 3, Normal speech Results - Vitals Vitals: Vital Signs - 24 hr 01/11/19 11:44 Temperature 36.2 C L Heart Rate 120 H Respiratory 20 Rate Blood Pressure 146/116 H O2 Saturation 99 Oxygen O2 Source [Without Activity] 4L via NC O2 Source Room air - Labs Labs: Laboratory Tests 01/11/19 01/11/19 01/11/19 12:00 12:21 12:21 WBC 7.4 RBC 4.33 Hgb 14.4 Hct 42.8 MCV 99.0 MCH 33.2 H MCHC 33.5 RDW 14.3 Plt Count 251 MPV 7.8 L Neut # (Auto) 4.9 Lymph # (Auto) 1.8 [place] # (Auto) 0.5 Eos # (Auto) 0.1 Baso # (Auto) 0.1 Absolute Nucleated RBC 0.00 Nucleated RBC % 0.0 Sodium 139 Potassium 3.7 Chloride 104 Carbon Dioxide 24 Anion Gap 11.0 BUN 8 Creatinine 0.8 Estimated GFR (MDRD) 75 L Glucose 125 H Calcium 9.4 Total Bilirubin 0.2 AST 20 ALT 14 Alkaline Phosphatase 79 Total Protein 7.9 Albumin 4.1 Globulin 3.8 Albumin/Globulin Ratio 1.1 Lipase 46 Urine Color YELLOW Urine Clarity HAZY Urine pH 6.0 Ur Specific [place] <=1.005 Urine Protein NEGATIVE Urine Glucose (UA) NEGATIVE Urine Ketones NEGATIVE Urine Occult Blood NEGATIVE Urine Nitrite NEGATIVE Urine Bilirubin NEGATIVE Urine Urobilinogen 0.2 (NORMAL) Ur Leukocyte Esterase MODERATE H Urine RBC None Seen Urine WBC >25 H Urine WBC Clumps PRESENT Ur Squamous Epith Cells RARE Squamous Urine Bacteria Few Ur Microscopic Review INDICATED Urine Culture Comments INDICATED Urine Opiates Screen NEGATIVE Ur Oxycodone Screen NEGATIVE Urine Methadone Screen NEGATIVE Ur Propoxyphene Screen NEGATIVE Ur Barbiturates Screen NEGATIVE Ur Tricyclics Screen NEGATIVE Ur Phencyclidine Scrn NEGATIVE Ur Amphetamine Screen NEGATIVE U Methamphetamines Scrn NEGATIVE U Benzodiazepines Scrn NEGATIVE Urine Cocaine Screen NEGATIVE U Cannabinoids Screen POSITIVE H - Rads (name of study) CT A/P Radiology: EMP read contemporaneously (Left mid abdominal hernia with fat in it. No bowel in it. There is potentially a surgical clip near the pancreatic duct or distal common bile duct. She denies recent instrumentation there. Pancreatic ductal dilatation unchanged since September of this year but new since January last year.) Departure - Departure Disposition: Home, Self Care Clinical Impression: Abdominal wall hernia, Pancreatic duct dilated UTI (urinary tract infection) Qualifiers: Urinary tract infection type: site unspecified Hematuria presence: without hematuria Qualified Code(s): N39.0 - Urinary tract infection, site not specified Condition: Good Record reviewed to determine appropriate education?: Yes Prescriptions: Hydrocodone/Acetaminophen [Hydrocodon-Acetaminophen 5-325] 1 - 2 each PO Q6H PRN #20 tablet PRN Reason: pain Sulfamethoxazole/Trimethoprim [Sulfamethoxazole-Tmp Ds Tablet] 1 each PO BID #14 tablet Comments: As discussed, the hernia in the left midabdomen contains just fat. There is not at this time any urgency to fix it. Take the copy of the CAT scan and labs with you to your appointment with the surgeon. Return for new or worsening symptoms. Also as discussed, you have pancreatic duct dilatation that is stable since September this year but new since January of last year. This needs further work-up. What I would recommend is seeing a spinal surgeon as soon as possible to take the no longer working spinal stimulator out such that you can have an MRI of your pancreas, "MRCP."
[2019-01-11 12:17] LABS: MUDS CUTOFF CONCENTRATIONS CUTOFF CONC BELOW:
[2019-01-11] MEDS ORDERED: IOVERSOL 320 100 ML VIAL IVP ONE ×2 (12:19→14:51)
[2019-01-11 12:25] LABS: BILIRUBIN,URINE NEGATIVE (NEGATIVE); GLUCOSE, URINE (UA) NEGATIVE (NEGATIVE); KETONES,URINE (UA) NEGATIVE (NEGATIVE); LEUKOCYTE ESTERASE, URINE MODERATE (NEGATIVE); NITRITE,URINE NEGATIVE (NEGATIVE); OCCULT BLOOD,URINE NEGATIVE (NEGATIVE); PROTEIN,URINE NEGATIVE (NEGATIVE); UROBILINOGEN,URINE 0.2 (NORMAL) E.U./dL (NORMAL)
[2019-01-11 12:27] LABS: BASOPHILS # (AUTO) 0.1 10^3/uL (0.0-0.1); BASOPHILS % (AUTO) 0.9 %; EOSINOPHILS # (AUTO) 0.1 10^3/uL (0.0-0.7); EOSINOPHILS % (AUTO) 0.9 %; HGB - HEMOGLOBIN 14.4 g/dL (12.0-16.0); LYMPHOCYTES # (AUTO) 1.8 10^3/uL (1.5-3.5); LYMPHOCYTES % (AUTO) 24.7 %; MEAN CORPUSCULAR HEMOGLOBIN 33.2 pg (27.0-31.0); MEAN CORPUSCULAR HGB CONC 33.5 g/dL (32.0-36.0); MEAN PLATELET VOLUME 7.8 fL (7.9-10.8); MONOCYTES # (AUTO) 0.5 10^3/uL (0.0-1.0); MONOCYTES % (AUTO) 6.3 %; NEUTROPHILS # (AUTO) 4.9 10^3/uL (1.5-6.6); NEUTROPHILS % (AUTO) 67.2 %; PLT - PLATELET COUNT 251 10^3/uL (130-450); RED BLOOD COUNT 4.33 10^6/uL (4.20-5.40); RED CELL DISTRIBUTION WIDTH 14.3 % (12.0-15.0); WHITE BLOOD COUNT 7.4 x10^3/uL (4.8-10.8)
[2019-01-11 12:31] LABS: CLARITY,URINE HAZY (CLEAR)
[2019-01-11 12:34] LABS: AMPHETAMINE SCREEN,URINE NEGATIVE (NEGATIVE); BENZODIAZEPINES SCREEN, URINE NEGATIVE (NEGATIVE); COCAINE SCREEN URINE NEGATIVE (NEGATIVE); METHADONE SCREEN, URINE NEGATIVE (NEGATIVE); METHAMPHETAMINES SCREEN, URINE NEGATIVE (NEGATIVE); OPIATE SCREEN, URINE NEGATIVE (NEGATIVE); OXYCODONE SCREEN, URINE NEGATIVE (NEGATIVE); PROPOXYPHENE SCREEN, URINE NEGATIVE (NEGATIVE); TRICYCLIC ANTIDEPRESSANT,URINE NEGATIVE (NEGATIVE)
[2019-01-11 12:38] LABS: BACTERIA,URINE Few /HPF (None Seen); RBC,URINE None Seen /HPF (0-5); SQUAMOUS EPITHELIAL CELL,UR RARE Squamous (<= Few); WBC CLUMPS,URINE PRESENT
[2019-01-11 12:40] LABS: ALBUMIN 4.1 g/dL (3.2-5.5); ALBUMIN/GLOBULIN RATIO 1.1 (1.0-2.2); BILIRUBIN,TOTAL 0.2 mg/dL (0.2-1.0); CALCIUM 9.4 mg/dL (8.5-10.3); CREATININE 0.8 mg/dL (0.4-1.0); TOTAL PROTEIN 7.9 g/dL (6.7-8.2)
--- NOTE | 2019-01-11 13:24 | CT Report ---
Reason: IV only, mid L abd pain Procedure Date: 01/11/2019 Accession Number: [id number] / [id number] Procedure: CT - Abdomen/Pelvis W CPT Code: FULL RESULT: EXAM: CT ABDOMEN AND PELVIS EXAM DATE: 01/11/2019 01:05 PM. CLINICAL HISTORY: Left mid abdomen pain COMPARISONS: ABDOMEN/PELVIS W/ 10/08/2018 10:47 PM ABDOMEN/PELVIS W/ 01/25/2018 6:15 PM. TECHNIQUE: Routine helical CT imaging was performed through the abdomen and pelvis. IV contrast: opti 320 100mL. Enteric contrast: No. Reconstructions: Coronal and sagittal. In accordance with CT protocol optimization, one or more of the following dose reduction techniques were utilized for this exam: automated exposure control, adjustment of mA and/or KV based on patient size, or use of iterative reconstructive technique. FINDINGS: Lung Bases: Unremarkable. Liver: Normal. No masses. Gallbladder/Bile Ducts: The gallbladder is surgically absent. There is a new linear metallic density seen in the pancreatic head overlying the distal common bile duct with the appearance of a surgical clip. Spleen: Normal. Pancreas: The pancreatic duct in the body of the pancreas appears dilated and irregular. Pancreatic duct measures 7 mm in diameter. The pancreatic head appears mildly heterogeneous but without a discrete mass. Adrenal Glands: Normal. Kidneys: No kidney stones or hydronephrosis. Peritoneal Cavity/Bowel: There is a fat-containing left-sided ventral hernia lateral to the left rectus abdominis muscle measuring 14 mm in diameter. There is no herniation of bowel. There are findings of previous midline lower abdominal ventral hernia repair with mesh. The small bowel is normal in caliber. There is no intraperitoneal free fluid or free air. No abscess. Pelvic Organs: Urinary bladder appears unremarkable. Uterus not visualized. Vasculature: The abdominal aorta is normal in caliber. Bones: No significant abnormality. Other: There is an implanted pump overlying the right lower quadrant of the abdomen. IMPRESSION: 1. Left mid abdominal 14 mm fat-containing ventral hernia. No herniation of bowel. 2. Newly linear metallic density with the appearance of a surgical clip or directly adjacent to the distal common bile duct in the pancreatic head of uncertain etiology and significance. 3. Pancreatic duct dilation in the body of pancreas appears unchanged since 10/08/2018 but new since 01/25/2018. Findings raise suspicion of a pancreatic duct obstructive process including small stone, pancreatic mass, or stricture. RADIA
[2019-01-11] MEDS ORDERED: HYDROmorphone 1 MG/ML CARPUJECT IVP STA (13:33)
== END 2019-01-11 14:00 | disposition home or self-care (01) ==
LOC: ED 11:33
DX: K43.9 Ventral hernia without obstruction or gangrene (principal); K86.89 Other specified diseases of pancreas; Z90.49 Acquired absence of other specified parts of digestive tract; N39.0 Urinary tract infection, site not specified; F17.200 Nicotine dependence, unspecified, uncomplicated
CPT/HCPCS: 36415; 74177; 80053; 80306; 81001; 83690; 85025; 87086; 96374; 96375; 99283; J1170; Q9967; 81003; 87077; 87181

== ENCOUNTER 2019-01-14 13:20 | Emergency (ER) | payer MEDICAID ==
[2019-01-14 13:26] VITALS: BP 149/102
--- NOTE | 2019-01-14 13:38 | ED Physician Documentation ---
PD HPI ABD PAIN - Stated complaint Stated Complaint: POSS ALLERGIC REACTION - Chief complaint Chief Complaint: Abd Pain - History obtained from History obtained from: Patient - History of Present Illness Timing - onset: Other (She was seen here a few days ago for hernia pain, it was a fat-containing ventral hernia. She has a surgical referral pending. She was also noticed to have infected urine. She started sulfa and that started to give her stomach inflammation and nausea which resolved after she stopped but she needs a new antibiotic and says the hydrocodone is not strong enough. She is not nauseous now and she is moving her bowels normally. No fevers. 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 : None HEENT: None Psych: None Musculoskeletal: Chronic back pain Derm: None - Past Surgical History Past Surgical History: Yes General: Cholecystectomy Ortho: Spine surgery /FIELD SERVICE REPRESENTATIVE: section, Hysterectomy - Present Medications Home Medications: Ambulatory Orders Medication Instructions Recorded Confirmed Gabapentin [Neurontin] 600 mg PO QID #40 tablet 04/08/18 01/11/19 Hydrocodone/Acetaminophen 1 - 2 each PO Q6H PRN #20 tablet 01/11/19 [Hydrocodon-Acetaminophen 5-325] Sulfamethoxazole/Trimethoprim 1 each PO BID #14 tablet 01/11/19 [Sulfamethoxazole-Tmp Ds Tablet] Amox/Clav 875/125 [Augmentin] 1 each PO Q12H #20 tablet 01/14/19 Oxycodone HCl/Acetaminophen 1 - 2 each PO Q6H PRN #14 tablet 01/14/19 [Percocet 5-325 mg Tablet] - Allergies Allergies/Adverse Reactions: Allergies Allergy/AdvReac Type Severity Reaction Status Date / Time No Known Drug Allergies Allergy Verified 01/14/19 13:26 - Social History Does the pt smoke?: Yes Smoking Status: Current every day smoker Does the pt drink ETOH?: No Does the pt have substance abuse?: No - Immunizations Immunizations are current?: Yes Immunizations: TDAP >10years/unknown - POLST Patient has POLST: No PD ED PE NORMAL - Vitals Vital signs reviewed: Yes - General General: Alert and oriented X 3, No acute distress - Abdomen Abdomen: Normal bowel sounds, Soft, Non tender - Neuro Neuro: Alert and oriented X 3, Normal speech Results - Vitals Vitals: Vital Signs - 24 hr 01/14/19 13:23 Temperature 37.1 C Heart Rate 117 H Respiratory 18 Rate Blood Pressure 149/102 H O2 Saturation 99 Oxygen O2 Source [Without Activity] 4L via NC O2 Source Room air PD MEDICAL DECISION MAKING - ED course ED course: Prior cultures reviewed, Augmentin substituted for the Bactrim. Departure - Departure Disposition: Home, Self Care Clinical Impression: Pyelonephritis Condition: Good Record reviewed to determine appropriate education?: Yes Instructions: Pyelonephritis Dc Prescriptions: Amox/Clav 875/125 [Augmentin] 1 each PO Q12H #20 tablet Oxycodone HCl/Acetaminophen [Percocet 5-325 mg Tablet] 1 - 2 each PO Q6H PRN #14 tablet PRN Reason: pain Comments: Follow-up with the surgeon as scheduled, return for new or worsening symptoms.
[2019-01-14 13:51] LABS: BILIRUBIN,URINE NEGATIVE (NEGATIVE); GLUCOSE, URINE (UA) NEGATIVE (NEGATIVE); KETONES,URINE (UA) NEGATIVE (NEGATIVE); LEUKOCYTE ESTERASE, URINE NEGATIVE (NEGATIVE); NITRITE,URINE NEGATIVE (NEGATIVE); OCCULT BLOOD,URINE NEGATIVE (NEGATIVE); PH,URINE 5.5 PH (5.0-7.5); PROTEIN,URINE NEGATIVE (NEGATIVE); UROBILINOGEN,URINE 0.2 (NORMAL) E.U./dL (NORMAL)
[2019-01-14 13:52] LABS: CLARITY,URINE CLEAR (CLEAR)
== END 2019-01-14 13:53 | disposition home or self-care (01) ==
LOC: ED 13:20
DX: N12 Tubulo-interstitial nephritis, not specified as acute or chronic (principal); F17.200 Nicotine dependence, unspecified, uncomplicated
CPT/HCPCS: 81001; 81003; 87086; 99283

== ENCOUNTER 2019-01-17 18:59 | Emergency (ER) | payer MEDICAID ==
--- NOTE | 2019-01-17 21:00 | ED Physician Documentation ---
PD HPI ABD PAIN - Stated complaint Stated Complaint: ABD PX - Chief complaint Chief Complaint: Abd Pain - History obtained from History obtained from: Patient - History of Present Illness Timing - onset: How many days ago (2-3 days of worse nausea, and today with repetitive vomiting. Out of antiemetics.) Timing - duration: Days Timing - details: Gradual onset, Waxing and waning Quality: Cramping, Aching, Pain Location: Periumbilical, RLQ Radiation: No: Chest, Lower back Improved by: No: Eating, Vomiting Worsened by: Moving, Palpation. No: Eating Associated symptoms: Nausea, Vomiting, Constipation. No: Fever, Diarrhea, Dysuria Similar symptoms before: Diagnosis (has abd wall hernia with fat and not obstruction. Seeing surgeon in [place] soon (closest one to take her insurance, per patient). Seen recently with CT. Similar symptoms. Does not have distension.) Recently seen: Emergency Dept Review of Systems Constitutional: denies: Fever, Chills, Myalgias Nose: denies: Rhinorrhea / runny nose, Congestion Throat: denies: Sore throat Respiratory: denies: Cough GI: reports: Abdominal Pain, Nausea, Vomiting, Constipation. 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 HEENT: None Psych: None Musculoskeletal: Chronic back pain Derm: None - Past Surgical History Past Surgical History: Yes General: Cholecystectomy Ortho: Spine surgery /AUTO SERVICE WRITER: section, Hysterectomy - Present Medications Home Medications: Ambulatory Orders Medication Instructions Recorded Confirmed Gabapentin [Neurontin] 600 mg PO QID #40 tablet 04/08/18 01/11/19 Hydrocodone/Acetaminophen 1 - 2 each PO Q6H PRN #20 tablet 01/11/19 [Hydrocodon-Acetaminophen 5-325] Sulfamethoxazole/Trimethoprim 1 each PO BID #14 tablet 01/11/19 [Sulfamethoxazole-Tmp Ds Tablet] Amox/Clav 875/125 [Augmentin] 1 each PO Q12H #20 tablet 01/14/19 Oxycodone HCl/Acetaminophen 1 - 2 each PO Q6H PRN #14 tablet 01/14/19 [Percocet 5-325 mg Tablet] Docusate Sodium 100 mg PO DAILY #30 capsule 01/17/19 Famotidine 20 mg PO DAILY #30 tablet 01/17/19 Ondansetron Odt [Zofran] 4 mg TL Q6H PRN #20 tablet 01/17/19 Oxycodone HCl 5 mg PO TID PRN #20 tablet 01/17/19 - Allergies Allergies/Adverse Reactions: Allergies Allergy/AdvReac Type Severity Reaction Status Date / Time No Known Drug Allergies Allergy Verified 01/14/19 13:26 - Social History Does the pt smoke?: Yes Smoking Status: Current every day smoker Does the pt drink ETOH?: No Does the pt have substance abuse?: No - Immunizations Immunizations are current?: Yes Immunizations: TDAP >10years/unknown - POLST Patient has POLST: No PD ED PE NORMAL - Vitals Vital signs reviewed: Yes - General General: Alert and oriented X 3, Well developed/nourished, Other (appears uncomfortable. APpears thin and somewhat frail. ) - HEENT HEENT: Pharynx benign - Neck Neck: Supple, no meningeal sign, No adenopathy - Cardiac Cardiac: RRR (but tachycardic), No murmur - Respiratory Respiratory: Clear bilaterally - Abdomen Abdomen: Normal bowel sounds, Soft, Non distended, No organomegaly, Other (tender lower abd without mass felt. ) Results - Vitals Vitals: Oxygen O2 Source [Without Activity] 4L via NC O2 Source Room air PD MEDICAL DECISION MAKING - ED course Complexity details: reviewed old records, considered differential (similar in the past and recent visits. DIscussed with patient and shared decision to not do imaging again. ), d/w patient Departure - Departure Disposition: 01 Home, Self Care Clinical Impression: Abdominal wall hernia Abdominal pain Qualifiers: Abdominal location: periumbilical Qualified Code(s): R10.33 - Periumbilical pain Vomiting Qualifiers: Vomiting type: unspecified Vomiting Intractability: non-intractable Nausea presence: with nausea Qualified Code(s): R11.2 - Nausea with vomiting, unspecified Condition: Stable Record reviewed to determine appropriate education?: Yes Follow-Up: Anni Haas MD [Primary Care Provider] - Prescriptions: Docusate Sodium 100 mg PO DAILY #30 capsule Famotidine 20 mg PO DAILY #30 tablet Ondansetron Odt [Zofran] 4 mg TL Q6H PRN #20 tablet PRN Reason: Nausea / Vomiting Oxycodone HCl 5 mg PO TID PRN #20 tablet PRN Reason: Pain Comments: Small frequent fluids and bland food. Return if needed for nausea. Docusate stool softener daily. Use an acid reducing medicine such as famotidine daily as her stomach would be irritated from the vomiting. Had pain medicine if needed. Follow-up with the surgeon as planned and in January. Discharge Date/Time: 01/17/19 22:49
[2019-01-17] MEDS ORDERED: PROMETHAZINE 25 MG/1 ML VIAL IM STA (21:25)
[2019-01-17] MEDS ORDERED: MORPHINE 10 MG/ML VIAL IM STA (21:25)
[2019-01-17] MEDS ORDERED: DOCUSATE SODIUM 100 MG CAPSULE PO STA (21:26)
[2019-01-17] MEDS ORDERED: ONDANSETRON ODT 4 MG Prepack 2 TL PRN (22:28)
[2019-01-17 22:34] VITALS: BP 125/88
[2019-01-17] MEDS ORDERED: oxyCODONE/ACET 5/325 Prepack 4 PO STA (22:34)
== END 2019-01-17 22:49 | disposition home or self-care (01) ==
LOC: ED 18:59
DX: K43.9 Ventral hernia without obstruction or gangrene (principal); R10.33 Periumbilical pain; R11.2 Nausea with vomiting, unspecified; F17.200 Nicotine dependence, unspecified, uncomplicated
CPT/HCPCS: 96372; 99283; A9270

== ENCOUNTER 2019-01-24 12:09 | Emergency (ER) | payer MEDICAID ==
[2019-01-24] MEDS ORDERED: CLINDAMYCIN 150 MG CAPSULE PO STA (13:25)
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
[2019-01-24 13:46] VITALS: BP 140/88
== END 2019-01-24 13:46 | disposition home or self-care (01) ==
LOC: ED 12:09
DX: K13.0 Diseases of lips (principal); F17.200 Nicotine dependence, unspecified, uncomplicated
CPT/HCPCS: 99283; A9270

== ENCOUNTER 2019-01-26 12:55 | Emergency (ER) | payer MEDICAID ==
[2019-01-26] MEDS ORDERED: BUFFERED LIDOCAINE 10 ML SYRINGE SUBQ STA (13:28)
[2019-01-26] MEDS ORDERED: VANCOMYCIN INJ 1 GM in SODIUM CHLORIDE 0.9% 500 ML IV STA (14:22)
[2019-01-26] MEDS ORDERED: KETOROLAC 30 MG/ML VIAL IVP STA (14:25)
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
[2019-01-26] MEDS ORDERED: HYDROmorphone 1 MG/ML CARPUJECT IVP STA (16:46)
[2019-01-26] MEDS ORDERED: ONDANSETRON 4 MG/2 ML VIAL IVP STA (16:46)
[2019-01-26 17:11] VITALS: BP 134/79
== END 2019-01-26 17:42 | disposition home or self-care (01) ==
LOC: ED 12:55
DX: K13.0 Diseases of lips (principal); F17.200 Nicotine dependence, unspecified, uncomplicated
CPT/HCPCS: 10060; 87070; 87205; 96365; 96366; 96375; 99283; J1170; J3370; 87181

== ENCOUNTER 2019-01-28 12:22 | Inpatient (IN) | payer MEDICAID ==
[2019-01-28] MEDS ORDERED: VANCOMYCIN INJ 1.5 GM in SODIUM CHLORIDE 0.9% 500 ML IV STA (13:23)
[2019-01-28] MEDS ORDERED: ONDANSETRON 4 MG/2 ML VIAL IVP STA (13:23)
[2019-01-28] MEDS ORDERED: HYDROmorphone 2 MG/ML VIAL IVP STA (13:23)
[2019-01-28] MEDS ORDERED: PROPOFOL 200 MG/20 ML VIAL IVP STA (13:23)
--- NOTE | 2019-01-28 13:27 | ED Physician Documentation ---
PD HPI HEENT - Stated complaint Stated Complaint: LIP PAIN - Chief complaint Chief Complaint: Fever - History obtained from History obtained from: Patient - History of Present Illness Timing - onset: Other (Few days ago she had a minor right lip injury that developed into an abscess. She is been seen twice for it and more recently had an incision and drainage done and was given IV vancomycin. The culture grew out MRSA. 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 : None HEENT: None Psych: None Musculoskeletal: Chronic back pain Derm: None - Past Surgical History Past Surgical History: Yes General: Cholecystectomy Ortho: Spine surgery /VISUAL BASIC PROGRAMMER: section, Hysterectomy - Allergies Allergies/Adverse Reactions: Allergies Allergy/AdvReac Type Severity Reaction Status Date / Time No Known Drug Allergies Allergy Verified 01/28/19 12:34 - Social History Does the pt smoke?: Yes Smoking Status: Current every day smoker Does the pt drink ETOH?: No Does the pt have substance abuse?: No - Family History Family history: reports: Non contributory - Immunizations Immunizations are current?: Yes Immunizations: TDAP >10years/unknown - POLST Patient has POLST: No PD ED PE NORMAL - Vitals Vital signs reviewed: Yes - General General: Alert and oriented X 3, No acute distress - HEENT HEENT: Other (There is a large lip abscess measuring about 3 x 2 cm of the lower right lip) - Neck Neck: Supple, no meningeal sign, No bony TTP - Cardiac Cardiac: RRR, No murmur - Respiratory Respiratory: No respiratory distress, Clear bilaterally - Abdomen Abdomen: Normal bowel sounds, Soft, Non tender - Back Back: No CVA TTP, No spinal TTP - Derm Derm: Normal color, Warm and dry - Extremities Extremities: No edema, No calf tenderness / cord - Neuro Neuro: Alert and oriented X 3, Normal speech - Psych Psych: Normal mood, Normal affect Results - Vitals Vitals: Vital Signs - 24 hr 01/28/19 01/28/19 01/28/19 12:32 12:59 13:41 Temperature 36.9 C Heart Rate 103 H 91 Respiratory 14 18 18 Rate Blood Pressure 146/121 H 135/86 H O2 Saturation 96 98 01/28/19 01/28/19 01/28/19 13:55 13:59 14:00 Temperature Heart Rate 83 85 78 Respiratory 16 14 14 Rate Blood Pressure 124/79 99/64 O2 Saturation 99 90 L 96 01/28/19 14:04 Temperature Heart Rate 94 Respiratory 20 Rate Blood Pressure O2 Saturation 98 Oxygen O2 Source [Without Activity] 4L via NC O2 Source Nasal cannula - Labs Labs: Laboratory Tests 01/28/19 13:51 WBC 9.2 RBC 3.72 L Hgb 12.4 Hct 36.6 L MCV 98.4 MCH 33.4 H MCHC 33.9 RDW 14.6 Plt Count 245 MPV 7.4 L Neut # (Auto) 6.7 H Lymph # (Auto) 1.8 [place] # (Auto) 0.5 Eos # (Auto) 0.2 Baso # (Auto) 0.1 Absolute Nucleated RBC 0.00 Nucleated RBC % 0.0 Procedures - Abscess I&D (location) Lip right Preparation: Lidocaine 1% (submental black) Incision: Incised with scalpel, Loculations broken, Packed (I used a hemostat on an internal incision and it basically popped right through the week tissue on the outside and a small [place] drain was looped through there.) Other: Pt tolerated well, Dressing applied - Procedural sedation Sedation prep: Informed consent, Time out completed, Last meal (yesterday), AHA 2 - mild disease Sedation medications: dilaudid, propofol (80mg IVP) Patient status during sedation: Responds to tactile, Recovered uneventfully. No: Respiratory depression, Hypoxia Sedation recovery: Recovered uneventfully Time in sedation (Minutes): 12 PD MEDICAL DECISION MAKING - ED course ED course: This is a 53-year-old woman who has failed outpatient treatment of an MRSA lip abscess. It was re-incised today and a [place] drain was left in. She was administered vancomycin and I spoke with Dr. Paz for admission at 2:05 PM. Departure - Departure Disposition: [facility] [place] DC/Xfer Clinical Impression: Abscess, lip, MRSA (methicillin resistant staph aureus) culture positive Cellulitis Qualifiers: Site of cellulitis: face Qualified Code(s): L03.211 - Cellulitis of face Condition: Stable
[2019-01-28 13:59] LABS: BASOPHILS # (AUTO) 0.1 10^3/uL (0.0-0.1); BASOPHILS % (AUTO) 0.6 %; EOSINOPHILS # (AUTO) 0.2 10^3/uL (0.0-0.7); EOSINOPHILS % (AUTO) 2.4 %; HGB - HEMOGLOBIN 12.4 g/dL (12.0-16.0); LYMPHOCYTES # (AUTO) 1.8 10^3/uL (1.5-3.5); LYMPHOCYTES % (AUTO) 19.2 %; MEAN CORPUSCULAR HEMOGLOBIN 33.4 pg (27.0-31.0); MEAN CORPUSCULAR HGB CONC 33.9 g/dL (32.0-36.0); MEAN CORPUSCULAR VOLUME 98.4 fL (81.0-99.0); MEAN PLATELET VOLUME 7.4 fL (7.9-10.8); MONOCYTES # (AUTO) 0.5 10^3/uL (0.0-1.0); MONOCYTES % (AUTO) 4.9 %; NEUTROPHILS # (AUTO) 6.7 10^3/uL (1.5-6.6); NEUTROPHILS % (AUTO) 72.9 %; PLT - PLATELET COUNT 245 10^3/uL (130-450); RED BLOOD COUNT 3.72 10^6/uL (4.20-5.40); RED CELL DISTRIBUTION WIDTH 14.6 % (12.0-15.0); WHITE BLOOD COUNT 9.2 x10^3/uL (4.8-10.8)
[2019-01-28 14:09] LABS: ALBUMIN 3.5 g/dL (3.2-5.5); BILIRUBIN,TOTAL 0.3 mg/dL (0.2-1.0); CREATININE 0.7 mg/dL (0.4-1.0); TOTAL PROTEIN 7.1 g/dL (6.7-8.2)
[2019-01-28] MEDS ORDERED: ONDANSETRON 4 MG/2 ML VIAL IVP PRN (14:32)
[2019-01-28] MEDS ORDERED: ACETAMINOPHEN 325 MG TABLET PO PRN (14:32)
[2019-01-28] MEDS ORDERED: TEMAZEPAM 15 MG CAPSULE PO PRN (14:32)
[2019-01-28] MEDS ORDERED: SODIUM CHLORIDE FLUSH 0.9% 10 ML SYRINGE IVP PRN (14:32)
--- NOTE | 2019-01-28 15:02 | HISTORY & PHYSICAL EXAMINATION ---
Chief Complaint - Chief Complaint Chief Complaint: increased lip swelling, MRSA infection History of Present Illness - Admitted From Admitted From:: ED - History Obtained From Records Reviewed: yes History obtained from: patient, chart review Exam Limitations: none - History of Present Illness HPI Comment/Other: Angela Salinas is a 53-year old female who appears older than stated age and has a past medical history of GERD, hiatal hernia, COPD with asthma, tobacco dependence, enlarged liver, chronic back pain, status post lumbar spinal fusion involving L3 through S1, status post spinal nerve stimulator and depression. The patient was seen on 01/24/2019 & 01/26/2019 for right lower lip cellulitis, at which time a tissue sample was obtained. She was first prescribed Clindamycin, switched to Bactrium 48 hours later. She continued to run fevers reported as 102.3 F at home orally, has had body aches, poor appetite, mild nausea, and a new productive cough. Tissue culture from 01/26/2019 has a preliminary result that is + for MRSA, sensitivities to follow. On my initial exam, the patient had diffuse bilateral crackles in both lungs, expiratory wheezing, required oxygen, had an enlarged abdominal girth, mild dependent BLE edema, no JVD, a systolic murmur, a wound drain to her right lower lip, minimally lethargic, a good historian, and was agreeable to an admission. She denied headaches, chest pain, nausea, vomiting, a new rash, diarrhea, dysuria, bleeding, or dizziness. Labs were unremarkable with a WBC count of 9.2, imaging of the lungs showed an atypical pattern of disease which may represent pneumonia. She will be admitted to inpatient for further treatment of the MRSA of her right lower lip, and w alking pneumonia. A sputum culture has been requested and she is at a high risk of leaving AMA given her history and impression upon initial exam. 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 : reports: None HEENT: reports: Chronic sinusitis Psych: reports: Depression, Anxiety Musculoskeletal: reports: Fatigue, Chronic back pain Derm: reports: None MRSA Hx?: Yes - Past Surgical History General: reports: Cholecystectomy Ortho: reports: Spine surgery /LOAN AUDITOR: reports: section, Hysterectomy - Family & Social History Family History: Mother: , CAD, Diabetes, Type 2, Father: , CAD, Diabetes, Type 2 Living arrangement: At home Living Situation: With family (lives with children) - Substance History Use: Uses substance without health or social issues: Tobacco Use Issues: Anxiety Disorder Abuse: Recurrent use of substance despite neg consequences: Cannabis Abuse Issues: Anxiety Disorder, Mood Disorder Dependence: Experiences withdrawal or developed tolerances: Tobacco, Cannabis Dependence Issues: Anxiety Disorder, Mood Disorder Tobacco Details: Cigarettes - POLST Patient has POLST: No POLST Status: Full Code Meds/Allgy - Home Medications Home Medications: Ambulatory Orders Medication Instructions Recorded Confirmed Gabapentin 600 mg PO QID 01/29/19 01/29/19 - Allergies Allergies/Adverse Reactions: Allergies Allergy/AdvReac Type Severity Reaction Status Date / Time No Known Drug Allergies Allergy Verified 01/28/19 12:34 Review of Systems - Constitutional Constitutional: reports: Fatigue, Fever, Chills, Weakness, Poor appetite, Night sweats, Weight loss - Eyes Eyes: reports: Vision loss - Ears, Nose & Throat Ears, Nose & Throat: reports: Postnasal drainage, Dentures, Sore throat, Hoarseness - Cardiovascular Cariovascular: reports: Edema, Lightheadedness, Decr. exercise tolerance - Respiratory Respiratory: reports: Cough, Sputum production, Wheezing, SOB with exertion - Gastrointestinal Gastrointestinal: reports: Abdominal distention, Nausea, Reflux/heartburn, Bloating, Poor appetite - Musculoskeletal Musculoskeletal: reports: Muscle weakness, Joint pain (joints are achy) - Integumentary Integumentary: reports: Dryness, Pigment changes - Neurological Neurological: reports: General weakness, Numbness (chronic BLE N/T due to back disorder) - Psychiatric Psychiatric: reports: Depression, Anxiety - Hematologic/Lymphatic Hematologic/Lymphatic: reports: Recurrent infections - All Other Systems All Other Systems: reports: Reviewed and negative Prior Level of Functionality: Lives independently, no use of walker, fell off the bed yesterday without injuries. Exam - Vital Signs Reviewed Vital Signs: Yes Vital Signs: Vital Signs x48h Temp Pulse Resp BP Pulse Ox 01/28/19 14:07 94 17 101/68 98 01/28/19 14:04 94 20 98 01/28/19 14:00 78 14 99/64 96 01/28/19 13:59 85 14 90 L 01/28/19 13:57 79 14 01/28/19 13:55 83 16 124/79 99 01/28/19 13:41 91 18 135/86 H 98 01/28/19 12:59 18 01/28/19 12:32 36.9 C 103 H 14 146/121 H 96 - Physical Exam General Appearance: positive: Moderate distress, Lethargic Eyes Bilateral: positive: PERRL ENT: positive: No signs of dehydration, Pharyngeal erythema Neck: positive: Thyroid nml, No JVD, Trachea midline, Lymphadenopathy (R), Stiff neck (caused by gross swelling to right low lip) Respiratory: positive: Chest non-tender, Wheezes (expiratory), Other (scattered crackles) Cardiovascular: positive: Regular rate & rhythm, Tachycardia, Systolic murmur Peripheral Pulses: positive: 2+ Abdomen: positive: Non-tender, Nml bowel sounds, Hepatomegaly, Other (enlarged, soft) Back: positive: Nml inspection Skin: positive: No rash, Warm, Dry, Other (bronze toned) Extremities: positive: Non-tender, Full ROM, Nml appearance, Pedal edema (trace, non-pitting) Neurologic/Psychiatric: positive: Oriented x3, CN's nml (2-12), Motor nml, Sensation nml, Weakness, Depressed mood/affect Reflexes: Bicep (R): 3+, Bicep (L): 3+ Sepsis Event Note (H) - Evaluation Current Stage of Sepsis: Sepsis Possible source of Sepsis: positive: Skin/soft tissue - Sepsis Criteria Sepsis Criteria: Recorded Heart Rate greater than 90 bpm, Respiratory: I ncreasing oxygen requirements Conclusion/Plan - Problem List (1) Abscess, lip Conclusion/Plan: - Initial injury was caused by her grand-daughter accidentally bumping her lower lip causing a small "split" - Was seen in the ED on 01/24 & 01/26 - Treated with Clindamycin, then Bactrim - Continued to get worse, increased swelling of right lower chin that extended into her right neck - Preliminary cultures are +MRSA Plan: Inpatient for more aggressive treatment using IV vanco (2) MRSA (methicillin resistant staph aureus) culture positive Conclusion/Plan: - Tissue sample from 01/26 is growing + MRSA - Patient denies a previous history of this Plan: Continue treatment with IV vanco (3) Pneumonia Conclusion/Plan: - Reports a productive cough, increased cough, and poor activity tolerance - Chest x-ray shows an atypical pattern of disease - On exam, crackles with expiratory wheezing - Required oxygen while in the ED - Fever, chills, body aches at home Plan: Start Levofloxacin, monitor for improvement (4) Tobacco dependence Conclusion/Plan: - Admits to smoking since age 19 - Down to 1 PPD - Nicotine patch at 21 mg prescribed Plan: Discourage escaping the nursing unit, smoking cessation upon discharge (5) Medical non-compliance Conclusion/Plan: - Made several comments regarding length of stay and how she hopes she can stay - Upon chart review of outside records, this was also apparent in visit notes and the lack of care - States she has an "enlarged liver" but states she did not follow up Plan: Continue to encourage compliance, especially upon discharge (6) Back pain Conclusion/Plan: - Chronic, status post laminectomy several years ago - Now has a "nerve stimulator" - Chronic numbness and tingling to BLEs - Prescribed gabapentin at home Plan: Continue to start in the AM, monitor for pain Qualifiers: Back pain location: low back pain Chronicity: chronic Back pain laterality: unspecified Sciatica presence: unspecified whether sciatica present Qualified Code(s): M54.5 - Low back pain; G89.29 - Other chronic pain (7) Acute facial pain Conclusion/Plan: - Dilaudid IV 2mg Q2 hours - Tylenol - Started at home, and she was given oxycodone in the ED Plan: Continue meds, monitor for improvement - Lab Results Lab results reviewed: Yes Thomas Bones: 01/29/19 04:54 01/29/19 04:54 Core Measures - Anticipated LOS I expect patient to be DC'd or transferred within 96 hours.: Yes - DVT/VTE - Prophylaxis VTE/DVT Device ordered at admit?: Yes VTE/DVT Prophylaxis med ordered at admit?: Yes - Stroke - Rehab Assessment Rehab services assessment to be ordered?: No Not Ordered - Medical Reason: Contraindicated - AMI - Statin at Admit Aspirin Prescribed on Admit: Yes
--- NOTE | 2019-01-28 15:14 | XRAY Report ---
Reason: cough, wheezing, crackles, fever Procedure Date: 01/28/2019 Accession Number: [id number] / [id number] Procedure: XR - Chest 1 View X-Ray CPT Code: 94810 FULL RESULT: EXAM: CHEST RADIOGRAPHY EXAM DATE: 01/28/2019 02:52 PM. CLINICAL HISTORY: Cough, wheezing, crackles, fever. COMPARISON: CHEST 2 VIEW PA/LAT 06/29/2015 8:35 PM. TECHNIQUE: 1 view. FINDINGS: Lungs/Pleura: Interval increase in interstitial markings with redemonstration of prominence of pulmonary vessels and peribronchial cuffing. Mediastinum: The cardiomediastinal silhouette is stable, no cardiomegaly. Other: Neurostimulator is redemonstrated. IMPRESSION: Interval increase in interstitial pulmonary markings. No lobar consolidation. The combination of airway thickening with increased interstitial markings can be seen with atypical pneumonia and central vascular congestion. Reactive airways disease is not felt to be likely. RADIA
[2019-01-28] MEDS ORDERED: HYDROmorphone 1 MG/ML CARPUJECT IVP PRN (15:21)
[2019-01-28] MEDS: NICOTINE 21 MG PATCH TOP SCH (15:39)
[2019-01-28] MEDS: SODIUM CHLORIDE 0.9% 1,000 ML IV SCH (16:00)
[2019-01-28] MEDS ORDERED: VANCOMYCIN PER PHARMACY 100 GM in SODIUM CHLORIDE 0.9% 250 ML IV SCH (16:00)
[2019-01-28 16:49] LABS: AMPHETAMINE SCREEN,URINE NEGATIVE (NEGATIVE); BENZODIAZEPINES SCREEN, URINE NEGATIVE (NEGATIVE); COCAINE SCREEN URINE NEGATIVE (NEGATIVE); METHADONE SCREEN, URINE NEGATIVE (NEGATIVE); METHAMPHETAMINES SCREEN, URINE NEGATIVE (NEGATIVE); MUDS CUTOFF CONCENTRATIONS CUTOFF CONC BELOW:; OPIATE SCREEN, URINE POSITIVE (NEGATIVE); OXYCODONE SCREEN, URINE NEGATIVE (NEGATIVE); PROPOXYPHENE SCREEN, URINE NEGATIVE (NEGATIVE); TRICYCLIC ANTIDEPRESSANT,URINE NEGATIVE (NEGATIVE)
[2019-01-28] MEDS: SODIUM CHLORIDE FLUSH 0.9% 10 ML SYRINGE IVP SCH (17:13)
[2019-01-28] MEDS: HYDROmorphone 2 MG/ML VIAL IVP PRN ×2 (17:55→20:28)
[2019-01-28] MEDS: LORazepam 1 MG TABLET PO PRN (18:36)
[2019-01-28] MEDS: levoFLOXacin 250 MG TABLET PO SCH (20:26)
[2019-01-28] MEDS: VANCOMYCIN INJ 1 GM in SODIUM CHLORIDE 0.9% 250 ML IV SCH (21:51)
[2019-01-29] MEDS: HYDROmorphone 2 MG/ML VIAL IVP PRN ×2 (00:24→05:11)
[2019-01-29] MEDS: SODIUM CHLORIDE FLUSH 0.9% 10 ML SYRINGE IVP SCH ×2 (00:33→08:47)
[2019-01-29] MEDS: SODIUM CHLORIDE 0.9% 1,000 ML IV SCH (01:30)
[2019-01-29 05:05] LABS: BASOPHILS # (AUTO) 0.1 10^3/uL (0.0-0.1); BASOPHILS % (AUTO) 0.8 %; EOSINOPHILS # (AUTO) 0.3 10^3/uL (0.0-0.7); EOSINOPHILS % (AUTO) 3.9 %; HGB - HEMOGLOBIN 10.5 g/dL (12.0-16.0); LYMPHOCYTES # (AUTO) 2.5 10^3/uL (1.5-3.5); LYMPHOCYTES % (AUTO) 32.2 %; MEAN CORPUSCULAR HEMOGLOBIN 33.4 pg (27.0-31.0); MEAN CORPUSCULAR HGB CONC 33.4 g/dL (32.0-36.0); MEAN CORPUSCULAR VOLUME 99.8 fL (81.0-99.0); MEAN PLATELET VOLUME 7.1 fL (7.9-10.8); MONOCYTES # (AUTO) 0.6 10^3/uL (0.0-1.0); MONOCYTES % (AUTO) 7.7 %; NEUTROPHILS # (AUTO) 4.3 10^3/uL (1.5-6.6); NEUTROPHILS % (AUTO) 55.4 %; PLT - PLATELET COUNT 214 10^3/uL (130-450); RED BLOOD COUNT 3.15 10^6/uL (4.20-5.40); RED CELL DISTRIBUTION WIDTH 14.4 % (12.0-15.0); WHITE BLOOD COUNT 7.7 x10^3/uL (4.8-10.8)
[2019-01-29 05:19] LABS: ALBUMIN 2.9 g/dL (3.2-5.5); BILIRUBIN,TOTAL 0.4 mg/dL (0.2-1.0); CALCIUM 8.5 mg/dL (8.5-10.3); CREATININE 0.6 mg/dL (0.4-1.0); CRP - C-REACTIVE PROTEIN 5.2 mg/dL (0-1.0); PHOSPHORUS 3.5 mg/dL (2.5-4.6); TOTAL PROTEIN 5.9 g/dL (6.7-8.2)
[2019-01-29] MEDS: VANCOMYCIN INJ 1 GM in SODIUM CHLORIDE 0.9% 250 ML IV SCH (06:05)
[2019-01-29] MEDS: LORazepam 1 MG TABLET PO PRN (06:06)
[2019-01-29] MEDS ORDERED: PANTOPRAZOLE 40 MG TABLET PO SCH (07:00)
[2019-01-29] MEDS ORDERED: GABAPENTIN 300 MG CAPSULE PO SCH (08:00)
[2019-01-29] MEDS: levoFLOXacin 250 MG TABLET PO SCH (08:21)
[2019-01-29] MEDS: NICOTINE 21 MG PATCH TOP SCH (08:22)
[2019-01-29 08:26] VITALS: BP 107/67
[2019-01-29] MEDS ORDERED: ENOXAPARIN 40 MG/0.4 ML SYRINGE SUBQ SCH (09:00)
[2019-01-29] MEDS ORDERED: POLYETHYLENE GLYCOL 3350 17 GM PACKET PO SCH (09:00)
--- NOTE | 2019-01-29 10:16 | Discharge Plan ---
Discharge Plan Disposition: Home, Self Care Condition: Good Prescriptions: Bacitracin Zinc Oint 28.4 gm TOP TID #1 tube Bupropion HCl [Zyban] 150 mg PO BID #60 tab.er.12h Fluconazole [Diflucan] 100 mg PO DAILY #5 tablet Levofloxacin [Levaquin] 500 mg PO DAILY #21 tablet Lidocaine Ointment 5% [Xylocaine Ointment 5%] 1 gm TOP TID #1 tube oxyCODONE [Roxicodone] 5 mg PO Q4-6H #25 tablet Saccharomyces Boulardii [Florastor] 250 mg PO BID #90 capsule Diet: Soft Activity Restrictions: Activity as Tolerated Shower Restrictions: No Additional Instructions or Follow Up instructions: You were admitted for failed outpatient treatment of right lower lip cellulitis/abcess. After culture results resulted, we have a clear antibiotic choice. Your lip drain was removed and this area needs to remain moist and supple to encourage healing. You will need to take the antibiotic for an extended period of time (21-days) based on the type of pathogen that was found. Please take the probiotic for at least double the time of the antibiotics ~45 days. The best way to heal the wound is by not smoking, so you are agreeable to trying Wellbutrin, also known as Zyban. You should take 150 mg daily for 3 days, then twice daily on the 4th day, ongoing. Please consider pulmonary rehab that is provided by our wellness center, as they are very good at helping patients out with smoking cessation. Please see your PCP within one week for follow up. No Smoking: If you smoke, Please STOP! Call for help. Follow-up with: Anni Haas MD [Primary Care Provider] -
[2019-01-29] MEDS ORDERED: oxyCODONE 5 MG TABLET PO PRN (10:26)
--- NOTE | 2019-01-29 13:22 | DISCHARGE SUMMARY ---
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 Started on IV vanco, that was transitioned to PO levofloxacin to be taken for the next 21 days, with a probio tic and #5 tablets of Diflucan. I emailed the patient since neither of her listed phone #s were working to explain the use of Diflucan Pneumonia, unspecified organism (J18.9) considered walking pneumonia, expiratory wheezing continued, but crackles cleared up, no further productive coughing noted. No sputum sample obtained Nicotine dependence, unspecified, uncomplicated (F17.200) refused nicotine patch on day #2, willing to try Zyban at home Patient's noncompliance w oth medical treatment and regimen (Z91.19) several examples, continually attempted to leave the nursing unit while being treated as inpatient, not willing to stop smoking despite my efforts as it will impede wound healing Dorsalgia, unspecified (M54.9) chronic, gabapentin continued, patient admits to using marjiuana to further treat this condition, also states that she has a nerve stimulator in her low back for pain control Headache (R51)- acute facial pain, stable, oxycodone #25 @ 5mg given Domestic problems (Z65.8) Patient stated that there is a lot of stress at home right now, refused to elaborate, no social work available for evaluation, will need follow up with PCP Marijuana dependence (F12.20) Admits to more than daily use, tested + for cannabis urine drug screen, states she uses this to treat her chronic back pain - HPI History of Present Illness: Angela Salinas is a 53-year old female who appears older than stated age and has a past medical history of GERD, hiatal hernia, COPD with asthma, tobacco dependence, enlarged liver, chronic back pain, status post lumbar spinal fusion involving L3 through S1, status post spinal nerve stimulator and depression. The patient was seen on 01/24/2019 & 01/26/2019 for right lower lip cellulitis, at which time a tissue sample was obtained. She was first prescribed Clindamycin, switched to Bactrium 48 hours later. She continued to run fevers reported as 102.3 F at home orally, has had body aches, poor appetite, mild nausea, and a new productive cough. Tissue culture from 01/26/2019 has a preliminary result that is + for MRSA, sensitivities to follow. On my initial exam, the patient had diffuse bilateral crackles in both lungs, expiratory wheezing, required oxygen, had an enlarged abdominal girth, mild dependent BLE edema, no JVD, a systolic murmur, a wound drain to her right lower lip, minimally lethargic, a good historian, and was agreeable to an admission. She denied headaches, chest pain, nausea, vomiting, a new rash, diarrhea, dysuria, bleeding, or dizziness. Labs were unremarkable with a WBC count of 9.2, imaging of the lungs showed an atypical pattern of disease which may represent pneumonia. She will be admitted to inpatient for further treatment of the MRSA of her right lower lip, and walking pneumonia. A sputum culture has been requested and she is at a high risk of leaving AMA given her history and impression upon initial exam. - HOSPITAL COURSE Hospital Course: The patient reluctantly stayed one night, with the need to continue smoking as the motivator to leave AMA. Since sensitivities resulted by this morning, she was able to be transitioned to PO levofloxacin for an extended course of 21- days. A short course of oxycodone was provided, external bacitracin ointment, lidocaine jelly, and she was agreeable to trying Zyban for more luck in quitting. I have ordered a Wellness center consult for pulmonary rehab, but doubtful that she is ready to quit smoking, which is the indication for this service. I reminded her that by not smoking, her wound would be able to have a chance to heal as this can be a difficult pathogen to treat +MRSA. She returned home via private car. - ALLERGIES Allergies/Adverse Reactions: Allergies Allergy/AdvReac Type Severity Reaction Status Date / Time No Known Drug Allergies Allergy Verified 01/28/19 12:34 - MEDICATIONS Home Medications: Ambulatory Orders Medication Instructions Recorded Confirmed Bacitracin Zinc Oint 28.4 gm TOP TID #1 tube 01/29/19 Bupropion HCl [Zyban] 150 mg PO BID #60 tab.er.12h 01/29/19 Fluconazole [Diflucan] 100 mg PO DAILY #5 tablet 01/29/19 Gabapentin 600 mg PO QID 01/29/19 01/29/19 Levofloxacin [Levaquin] 500 mg PO DAILY #21 tablet 01/29/19 Lidocaine Ointment 5% [Xylocaine 1 gm TOP TID #1 tube 01/29/19 Ointment 5%] Saccharomyces Boulardii [Florastor] 250 mg PO BID #90 capsule 01/29/19 oxyCODONE [Roxicodone] 5 mg PO Q4-6H #25 tablet 01/29/19 - PHYSICAL EXAM AT DISCHARGE General Appearance: positive: Alert, Mild distress, Anxious Eyes Bilateral: positive: PERRL ENT: positive: Pharynx nml, No signs of dehydration, Oral lesions (right low lip wound, +MRSA) Neck: positive: Thyroid nml, No JVD, Lymphadenopathy (R) Respiratory: positive: Chest non-tender, No respiratory distress, Wheezes (expiratory) Cardiovascular: positive: Regular rate & rhythm, No gallop, Systolic murmur Peripheral Pulses: positive: 2+ Abdomen: positive: Non-tender, Nml bowel sounds Back: positive: Nml inspection Skin: positive: Color nml, No rash, Warm, Dry Extremities: positive: Non-tender, Full ROM, Nml appearance, No pedal edema Neurologic/Psychiatric: positive: Oriented x3, CN's nml (2-12), Motor nml, Sensation nml, Depressed mood/affect Reflexes: Bicep (R): 3+, Bicep (L): 3+ - LABS Result Diagrams: 01/29/19 04:54 01/29/19 04:54 - DIAGNOSTIC IMAGING Diagnostic Imaging Results: Final report reviewed Diagnostic Imaging Results Comments: EXAM: CHEST RADIOGRAPHY EXAM DATE: 01/28/2019 02:52 PM IMPRESSION: Interval increase in interstitial pulmonary markings. No lobar consolidation. The combination of airway thickening with increased interstitial markings can be seen with atypical pneumonia and central vascular congestion. Reactive airways disease is not felt to be likely. - FOLLOW UP Follow Up: Disposition: Home, Self Care Prescriptions: Bacitracin Zinc Oint 28.4 gm TOP TID #1 tube Bupropion HCl [Zyban] 150 mg PO BID #60 tab.er.12h Fluconazole [Diflucan] 100 mg PO DAILY #5 tablet Levofloxacin [Levaquin] 500 mg PO DAILY #21 tablet Lidocaine Ointment 5% [Xylocaine Ointment 5%] 1 gm TOP TID #1 tube oxyCODONE [Roxicodone] 5 mg PO Q4-6H #25 tablet Saccharomyces Boulardii [Florastor] 250 mg PO BID #90 capsule Diet: Soft Additional Instructions or Follow Up instructions: You were admitted for failed outpatient treatment of right lower lip cellulitis/abcess. After culture results resulted, we have a clear antibiotic choice. Your lip drain was removed and this area needs to remain moist and supple to encourage healing. You will need to take the antibiotic for an extended period of time (21-days) based on the type of pathogen that was found. Please take the probiotic for at least double the time of the antibiotics ~45 days. The best way to heal the wound is by not smoking, so you are agreeable to trying Wellbutrin, also known as Zyban. You should take 150 mg daily for 3 days, Then twice daily on the 4th day, ongoing. Please consider pulmonary rehab that is provided by our wellness center, as they are very good at helping patients out with smoking cessation.Please see your PCP within one week for follow up. - TIME SPENT Time Spent in Discharge (Minutes): 50
== END 2019-01-29 10:50 | disposition home or self-care (01) | DRG 157 ==
LOC: ED 12:22 → MS3 14:12
PROVIDERS: ADMIT Nurse Practitioner; ATTEND Nurse Practitioner
DX: K13.0 Diseases of lips (principal); J18.9 Pneumonia, unspecified organism; J44.0 Chronic obstructive pulmonary disease with (acute) lower respiratory infection; B95.62 Methicillin resistant Staphylococcus aureus infection as the cause of diseases classified elsewhere; M54.9 Dorsalgia, unspecified; G89.29 Other chronic pain; F32.9 Major depressive disorder, single episode, unspecified; F17.218 Nicotine dependence, cigarettes, with other nicotine-induced disorders; F12.280 Cannabis dependence with cannabis-induced anxiety disorder; F12.288 Cannabis dependence with other cannabis-induced disorder; G62.9 Polyneuropathy, unspecified; S01.5 Open wound of lip and oral cavity; Z79.899 Other long term (current) drug therapy; Z91.19 Patient's noncompliance with other medical treatment and regimen; Z96.89 Presence of other specified functional implants; Z63.8 Other specified problems related to primary support group; Z98.1 Arthrodesis status; Z91.81 History of falling
CPT/HCPCS: 10061; 36415; 71045; 80053; 80306; 82977; 83605; 83690; 83735; 84100; 85025; 86140; 94770; 96365; 96375; 99152; 99284; A9270; J1170; J3370; J8499

== ENCOUNTER 2019-09-26 15:36 | Emergency (ER) | payer MEDICAID ==
[2019-09-26] MEDS ORDERED: HYDROmorphone 1 MG/ML CARPUJECT IVP STA ×3 (16:00→21:11)
[2019-09-26] MEDS ORDERED: SODIUM CHLORIDE 0.9% 1,000 ML IV ONE ×2 (16:00→18:47)
--- NOTE | 2019-09-26 16:03 | ED Physician Documentation ---
History of Present Illness - Stated complaint Stated Complaint: FEMALE , BODY ITCHING/SORES, ABD PAIN - Chief complaint Chief Complaint: General - History obtained from History obtained from: Patient (54-year-old woman who on previous imaging was known to have a pancreatic mass, there was some sort of lost to follow-up regarding referrals to specialist. She notes worsening abdominal and flank pain, jaundice and dark urine over the last few days.) Review of Systems Ten Systems: 10 systems reviewed and negative Constitutional: reports: Weight Loss (She probably has lost 60 pounds over the last year). denies: Fever, Chills GI: reports: Abdominal Pain. denies: Nausea, Vomiting, Diarrhea : denies: Dysuria, Frequency PD PAST MEDICAL HISTORY - Past Medical History Cardiovascular: Murmur Respiratory: Asthma, COPD, Pneumonia Neuro: Headaches, Peripheral neuropathy Endocrine/Autoimmune: None GI: GERD, Hiatal hernia STORE CONSULTANT: None : None HEENT: Chronic sinusitis Psych: Depression, Anxiety Musculoskeletal: Fatigue, Chronic back pain Derm: None - Past Surgical History Past Surgical History: Yes General: Cholecystectomy Ortho: Spine surgery /STORE CONSULTANT: section, Hysterectomy - Present Medications Home Medications: Ambulatory Orders Medication Instructions Recorded Confirmed Bacitracin Zinc Oint 28.4 gm TOP TID #1 tube 01/29/19 Fluconazole [Diflucan] 100 mg PO DAILY #5 tablet 01/29/19 Gabapentin 600 mg PO QID 01/29/19 01/29/19 Levofloxacin [Levaquin] 500 mg PO DAILY #21 tablet 01/29/19 Lidocaine Ointment 5% [Xylocaine 1 gm TOP TID #1 tube 01/29/19 Ointment 5%] Saccharomyces Boulardii [Florastor] 250 mg PO BID #90 capsule 01/29/19 buPROPion HCl [Zyban] 150 mg PO BID #60 tab.er.12h 01/29/19 oxyCODONE [Roxicodone] 5 mg PO Q4-6H #25 tablet 01/29/19 Docusate Sodium 100 mg PO DAILY #30 capsule 08/04/19 Famotidine 20 mg PO DAILY #30 tablet 08/04/19 Hydrocodone/Acetaminophen 1 each PO Q6H PRN #18 tablet 08/04/19 [Hydrocodon-Acetaminophen 5-325] Lidocaine Viscous 2% [Xylocaine 5 ml PO Q4H PRN #100 ml 08/04/19 Viscous 2%] Ondansetron Odt [Zofran] 4 mg TL Q6H PRN #15 tablet 08/04/19 - Allergies Allergies/Adverse Reactions: Allergies Allergy/AdvReac Type Severity Reaction Status Date / Time No Known Drug Allergies Allergy Verified 01/28/19 12:34 - Social History Does the pt smoke?: Yes Smoking Status: Current every day smoker Does the pt drink ETOH?: No Does the pt have substance abuse?: No - Family History Family history: reports: Non contributory - Immunizations Immunizations are current?: Yes Immunizations: TDAP >10years/unknown - POLST Patient has POLST: No POLST Status: Full Code PD ED PE NORMAL - Vitals Vital signs reviewed: Yes - General General: Alert and oriented X 3 (Pale gaunt jaundiced woman who has lost a lot of weight recently) - HEENT HEENT: PERRL (with icterus), Pharynx benign - Neck Neck: Supple, no meningeal sign, No bony TTP - Cardiac Cardiac: RRR, No murmur - Respiratory Respiratory: No respiratory distress, Clear bilaterally - Abdomen Abdomen: Other (Mild upper abdominal tenderness without surgical signs) - Back Back: No CVA TTP - Derm Derm: Other (Excoriated rash on the trunk and back) - Neuro Neuro: Alert and oriented X 3, No motor deficit, No sensory deficit, Normal speech - Psych Psych: Normal mood, Normal affect Results - Vitals Vitals: Vital Signs - 24 hr 09/26/19 09/26/19 09/26/19 15:47 15:51 17:20 Temperature 37 C 37.1 C 37.1 C Heart Rate 107 H 53 L 71 Respiratory 18 17 17 Rate Blood Pressure 142/99 H 117/79 123/88 H O2 Saturation 98 94 97 09/26/19 18:29 Temperature 36.9 C Heart Rate 75 Respiratory 16 Rate Blood Pressure 136/91 H O2 Saturation 97 Oxygen O2 Source [] 4L via NC O2 Source Room air - Labs Labs: Laboratory Tests 09/26/19 09/26/19 09/26/19 15:55 17:02 17:02 WBC 8.5 RBC 3.41 L Hgb 11.7 L Hct 33.0 L MCV 96.8 MCH 34.3 H MCHC 35.5 RDW 14.6 Plt Count 229 MPV 9.7 Neut # (Auto) 6.8 H Lymph # (Auto) 1.1 L [place] # (Auto) 0.4 Eos # (Auto) 0.1 Baso # (Auto) 0.1 Absolute Nucleated RBC 0.00 Nucleated RBC % 0.0 Sodium 135 Potassium 2.6 L Chloride 99 L Carbon Dioxide 28 Anion Gap 8.0 BUN 9 Creatinine 0.5 Estimated GFR (MDRD) 128 Glucose 293 H Calcium 8.8 Total Bilirubin 6.3 H AST 154 H ALT 183 H Alkaline Phosphatase 373 H Total Protein 6.4 L Albumin 3.2 Globulin 3.2 Albumin/Globulin Ratio 1.0 Lipase 34 Urine Color BROWN Urine Clarity HAZY Urine pH 6.5 Ur Specific [place] 1.020 Urine Protein TNP Urine Glucose (UA) NEGATIVE Urine Ketones TRACE Urine Occult Blood TRACE-INTA Urine Nitrite POSITIVE H Urine Bilirubin LARGE H Urine Urobilinogen TNP Ur Leukocyte Esterase TRACE H Urine RBC 0-5 Urine WBC 4-5 Ur Squamous Epith Cells RARE Squamous Urine Bacteria Rare Urine Mucus Few Strands Ur Microscopic Review INDICATED Urine Culture Comments INDICATED - Rads (name of study) CT A/p Radiology: EMP read contemporaneously (4.4 cm pancreatic head mass with biliary obstruction) PD MEDICAL DECISION MAKING - ED course ED course: 54-year-old woman presents with worsening of her known pancreatic head mass that was lost to follow-up, now jaundiced and found to also have severe hypokalemia. Found to have 4.4 cm pancreatic head mass with obstruction, spoke with Dr. Galileo Gatica, hospitalist at [facility] and requests that we speak with GI before he accepts. Spoke with Dr Stock GI at [facility] who said this was within his scope of practice to biopsy and do ERCP or EUS biopsy. Dr. Gatica was updated after that discussion and accepted the patient, cobras were completed. She is stable for transport for higher level of care. Departure - Departure Disposition: 02 Transfer Acute Care Hosp Clinical Impression: Biliary obstruction, Hypokalemia Pancreatic cancer Qualifiers: Pancreatic malignancy location: head of pancreas Qualified Code(s): C25.0 - Malignant neoplasm of head of pancreas Condition: Serious
[2019-09-26] MEDS ORDERED: IOVERSOL 320 100 ML VIAL IVP ONE ×2 (16:04→17:54)
[2019-09-26 16:43] LABS: BILIRUBIN,URINE LARGE (NEGATIVE); GLUCOSE, URINE (UA) NEGATIVE (NEGATIVE); KETONES,URINE (UA) TRACE mg/dL (NEGATIVE); LEUKOCYTE ESTERASE, URINE TRACE (NEGATIVE); NITRITE,URINE POSITIVE (NEGATIVE); OCCULT BLOOD,URINE TRACE-INTA (NEGATIVE); PH,URINE 6.5 PH (5.0-7.5)
[2019-09-26 16:49] LABS: CLARITY,URINE HAZY (CLEAR); ICTOTEST,URINE pos
[2019-09-26 16:51] LABS: BACTERIA,URINE Rare /HPF (None Seen); MUCUS,URINE Few Strands; RBC,URINE 0-5 /HPF (0-5); SQUAMOUS EPITHELIAL CELL,UR RARE Squamous (<= Few)
[2019-09-26 17:09] LABS: BASOPHILS # (AUTO) 0.1 10^3/uL (0.0-0.1); BASOPHILS % (AUTO) 0.6 %; EOSINOPHILS # (AUTO) 0.1 10^3/uL (0.0-0.7); EOSINOPHILS % (AUTO) 0.9 %; HGB - HEMOGLOBIN 11.7 g/dL (12.0-16.0); LYMPHOCYTES # (AUTO) 1.1 10^3/uL (1.5-3.5); LYMPHOCYTES % (AUTO) 12.5 %; MEAN CORPUSCULAR HEMOGLOBIN 34.3 pg (27.0-31.0); MEAN CORPUSCULAR HGB CONC 35.5 g/dL (32.0-36.0); MEAN CORPUSCULAR VOLUME 96.8 fL (81.0-99.0); MEAN PLATELET VOLUME 9.7 fL (7.9-10.8); MONOCYTES # (AUTO) 0.4 10^3/uL (0.0-1.0); MONOCYTES % (AUTO) 5.1 %; NEUTROPHILS # (AUTO) 6.8 10^3/uL (1.5-6.6); NEUTROPHILS % (AUTO) 80.5 %; PLT - PLATELET COUNT 229 10^3/uL (130-450); RED BLOOD COUNT 3.41 10^6/uL (4.20-5.40); RED CELL DISTRIBUTION WIDTH 14.6 % (12.0-15.0); WHITE BLOOD COUNT 8.5 x10^3/uL (4.8-10.8)
[2019-09-26 17:24] LABS: ALBUMIN 3.2 g/dL (3.2-5.5); BILIRUBIN,TOTAL 6.3 mg/dL (0.2-1.0); CALCIUM 8.8 mg/dL (8.5-10.3); CREATININE 0.5 mg/dL (0.4-1.0); TOTAL PROTEIN 6.4 g/dL (6.7-8.2)
[2019-09-26] MEDS ORDERED: POTASSIUM CHLORIDE 20 MEQ TABLET PO STA (17:58)
[2019-09-26] MEDS: POTASSIUM CHLOR 10 MEQ/100 ML 10 MEQ/100 ML BAG IV ONE ×3 (18:25→18:55)
--- NOTE | 2019-09-26 18:41 | CT Report ---
Reason: IV only, known pancreatic mass, now jaundice Procedure Date: 09/26/2019 Accession Number: [id number] / [id number] Procedure: CT - Abdomen/Pelvis W CPT Code: Final Report FULL RESULT: EXAM: CT ABDOMEN AND PELVIS EXAM DATE: 09/26/2019 05:53 PM. CLINICAL HISTORY: IV only, known pancreatic mass, now jaundice. COMPARISONS: ABDOMEN/PELVIS W/ 01/11/2019 12:57 PM. TECHNIQUE: Routine helical CT imaging was performed through the abdomen and pelvis. IV contrast: OPTI 320 90ML. Enteric contrast: No. Reconstructions: Coronal and sagittal. In accordance with CT protocol optimization, one or more of the following dose reduction techniques were utilized for this exam: automated exposure control, adjustment of mA and/or KV based on patient size, or use of iterative reconstructive technique. FINDINGS: Lung Bases: Posterior basal segment left lower lobe 5 mm nodule which is new as compared to the CT 01/11/2019. Liver: Moderate intrahepatic biliary dilatation which has developed since his CT 01/11/2019. , Involving caliber 1.1 mm. Obstruction common bile duct at the level of the pancreatic head secondary to infiltrating the indistinct pancreatic carcinoma. Gallbladder/Bile Ducts: Cholecystectomy. Spleen: Normal. Pancreas: The presumed a clip common bile duct is no longer identified 01/11/2019. Distal common bile duct 3 mm caliber. Tapered narrowing common bile duct at the superior pancreatic head. AP dimension pancreatic head 4.4 cm which is compared to [address] 01/11/2019. Dilatation of the pancreatic duct at the pancreatic tail and pancreatic body. There is abrupt truncation of the dilated pancreatic duct at the level of the pancreatic neck. Maximum on caliber of the pancreatic duct at the pancreatic neck there is 8 mm which is compared to 7.[address] 01/11/2019. Normal enhancement of the superior mesenteric vein and portal vein. Negative for celiac artery or superior mesenteric artery encasement. Negative for main portal vein thrombosis. Adrenal Glands: Normal. Kidneys: Normal. No masses or hydronephrosis. Peritoneal Cavity/Bowel: Negative for ascites. Diffuse: Dilatation consistent with ileus or pseudoobstruction. Normal caliber jejunum and ileum. The appendix is well visualized and normal. Pelvic Organs: Normal. The bladder and visualized pelvic organs are within normal limits. Vasculature: No aneurysms or other significant abnormality. Bones: No significant abnormality. Other: Stable small ventral abdominal wall hernia. IMPRESSION: Extrahepatic common bile duct obstruction from enlarging infiltrating pancreatic head carcinoma with moderate intrahepatic biliary dilatation which has developed since the CT abdomen 01/11/2019. RADIA
[2019-09-26] MEDS ORDERED: LORazepam 2 MG/ML VIAL IVP STA (19:47)
[2019-09-26] MEDS ORDERED: DOXEPIN 10 MG CAPSULE PO STA (19:47)
[2019-09-26] MEDS ORDERED: NICOTINE 14 MG PATCH TOP STA (19:47)
[2019-09-26] MEDS ORDERED: GABAPENTIN 100 MG CAPSULE PO STA (20:11)
[2019-09-26 21:20] VITALS: BP 120/89
== END 2019-09-26 21:20 | disposition short-term general hospital (02) ==
LOC: ED 15:36
DX: C25.0 Malignant neoplasm of head of pancreas (principal); K83.1 Obstruction of bile duct; E87.6 Hypokalemia; R21 Rash and other nonspecific skin eruption; F17.200 Nicotine dependence, unspecified, uncomplicated
CPT/HCPCS: 36415; 74177; 80053; 81001; 83690; 85025; 87086; 96361; 96365; 96366; 96375; 96376; 99283; 99285; A9270; J1170; J2060; Q9967; 81003

== ENCOUNTER 2019-10-01 17:13 | Emergency (ER) | payer MEDICAID ==
--- NOTE | 2019-10-01 18:25 | ED Physician Documentation ---
History of Present Illness - Stated complaint Stated Complaint: IRREGULAR BLOOD SUGARS - Chief complaint Chief Complaint: General - History obtained from History obtained from: Patient - History of Present Illness Timing: Today Pain level max: 6 Pain level now: 6 - Additonal information Additional information: 54-year-old female presents to the emergency department stating that her blood sugars been high at home. She was recently diagnosed with pancreatic cancer. She has an appointment with her specialist on Thursday. She states that the original insulin she was prescribed needed prior authorization, they changed it to another insulin but will not be available at the pharmacy till Thursday. She is not having any vomiting. She has nominal pain. She states she will be out of her oxycodone soon as well. 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 : None HEENT: Chronic sinusitis Psych: Depression, Anxiety Musculoskeletal: Fatigue, Chronic back pain Derm: None Other Past Medical History: pancreatic cancer - Past Surgical History Past Surgical History: Yes General: Cholecystectomy Ortho: Spine surgery /TELEGRAPHIC TYPEWRITER OPERATOR CHIEF: section, Hysterectomy - Present Medications Home Medications: Ambulatory Orders Medication Instructions Recorded Confirmed Bacitracin Zinc Oint 28.4 gm TOP TID #1 tube 01/29/19 Fluconazole [Diflucan] 100 mg PO DAILY #5 tablet 01/29/19 Gabapentin 600 mg PO QID 01/29/19 01/29/19 Levofloxacin [Levaquin] 500 mg PO DAILY #21 tablet 01/29/19 Lidocaine Ointment 5% [Xylocaine 1 gm TOP TID #1 tube 01/29/19 Ointment 5%] Saccharomyces Boulardii [Florastor] 250 mg PO BID #90 capsule 01/29/19 buPROPion HCl [Zyban] 150 mg PO BID #60 tab.er.12h 01/29/19 oxyCODONE [Roxicodone] 5 mg PO Q4-6H #25 tablet 01/29/19 Docusate Sodium 100 mg PO DAILY #30 capsule 08/04/19 Famotidine 20 mg PO DAILY #30 tablet 08/04/19 Hydrocodone/Acetaminophen 1 each PO Q6H PRN #18 tablet 08/04/19 [Hydrocodon-Acetaminophen 5-325] Lidocaine Viscous 2% [Xylocaine 5 ml PO Q4H PRN #100 ml 08/04/19 Viscous 2%] Ondansetron Odt [Zofran] 4 mg TL Q6H PRN #15 tablet 08/04/19 Oxycodone HCl 5 - 15 mg PO Q4H PRN #20 tablet 10/01/19 - Allergies Allergies/Adverse Reactions: Allergies Allergy/AdvReac Type Severity Reaction Status Date / Time No Known Drug Allergies Allergy Verified 10/01/19 17:16 - Social History Does the pt smoke?: Yes Smoking Status: Current every day smoker Does the pt drink ETOH?: No Does the pt have substance abuse?: No - Immunizations Immunizations are current?: Yes Immunizations: TDAP >10years/unknown - POLST Patient has POLST: No POLST Status: Full Code PD ED PE NORMAL - Vitals Vital signs reviewed: Yes - General General: Alert and oriented X 3, No acute distress, Well developed/nourished - HEENT HEENT: PERRL, Moist mucous membranes - Neck Neck: Supple, no meningeal sign - Cardiac Cardiac: RRR, Strong equal pulses - Respiratory Respiratory: No respiratory distress, Clear bilaterally - Abdomen Abdomen: Soft, Non distended, Other (mild TTP epigastric, no peritoneal signs) - Derm Derm: Warm and dry - Extremities Extremities: No edema - Neuro Neuro: Alert and oriented X 3 - Psych Psych: Normal mood, Normal affect Results - Vitals Vitals: Vital Signs - 24 hr 10/01/19 10/01/19 17:22 18:38 Temperature 36.6 C 36.9 C Heart Rate 80 82 Respiratory 14 16 Rate Blood Pressure 150/86 H 133/77 H O2 Saturation 100 98 Oxygen O2 Source [Without Activity] 4L via NC O2 Source Room air - Labs Labs: Laboratory Tests 10/01/19 17:19 POC Whole Bld Glucose 234 H PD MEDICAL DECISION MAKING - ED course Complexity details: considered differential, d/w patient ED course: Patient does not know what insulin or what dose of insulin she is supposed to be taking. The pharmacy is unavailable to tell me the dose of insulin she was supposed to be taking. Therefore we will allow her blood sugar to run in the 200s until she sees her doctor on Thursday and come warp picker her insulin. We will prescribe a small amount of pain medication for her. Patient counseled regarding signs and symptoms for which I believe and urgent re-evaluation would be necessary. Patient with good understanding of and agreement to plan and is comfortable going home at this time This document was made in part using voice recognition software. While efforts are made to proofread this document, sound alike and grammatical errors may occur. Departure - Departure Disposition: Home, Self Care Clinical Impression: Pancreatic cancer Qualifiers: Pancreatic malignancy location: unspecified Qualified Code(s): C25.9 - Malignant neoplasm of pancreas, unspecified Condition: Good Instructions: ED Abdominal Pain Unkn Cause Follow-Up: your,doctor on Thursday [Other] Prescriptions: Oxycodone HCl 5 - 15 mg PO Q4H PRN #20 tablet PRN Reason: Abdominal Pain Comments: Follow-up with your doctor for further care. Obtain your insulin on Thursday. Return if you worsen. Do not drink alcohol or drive while on narcotic pain medicine. Note that many narcotic pain relievers also contain tylenol/acetaminophen. Please ensure that your total dose of acetaminophen from all sources does not exceed 3 grams (3000mg) per day. You may constipated on this medication, take a stool softener such as "Colace" twice a day while you are on it. Also recommend a [id number] laxative such as senna or MiraLAX any day that you do not have a bowel movement. If you received narcotic pain medication in the emergency department, do not drive or operate machinery for the next 24 hours. Discharge Date/Time: 10/01/19 19:06
[2019-10-01] MEDS ORDERED: oxyCODONE 5 MG TABLET PO STA ×2 (18:33→18:52)
[2019-10-01 18:39] VITALS: BP 133/77
== END 2019-10-01 19:06 | disposition home or self-care (01) ==
LOC: ED 17:13
DX: R73.9 Hyperglycemia, unspecified (principal); C25.9 Malignant neoplasm of pancreas, unspecified; F17.200 Nicotine dependence, unspecified, uncomplicated
CPT/HCPCS: 99282; 99284; A9270

== ENCOUNTER 2019-10-11 10:10 | Emergency (ER) | payer MEDICAID ==
--- NOTE | 2019-10-11 12:40 | ED Physician Documentation ---
PD HPI ABD PAIN - Stated complaint Stated Complaint: ABD PX - Chief complaint Chief Complaint: Abd Pain - History obtained from History obtained from: Patient - History of Present Illness Timing - onset: How many weeks ago Timing - duration: Weeks Pain level now: 9 Quality: Pain Location: All over / everywhere Radiation: Upper back Associated symptoms: Nausea, Vomiting (Chronic). No: Fever Recently seen: Emergency Dept - Additional information Additional information: There is a 54-year-old woman who was recently diagnosed with a pancreatic carcinoma earlier this month and the biopsy returned 4 days ago that was positive for the cancer. She has her first oncology appointment October 18 to determine what the best mode of treatment is. She saw some physician she does not know who up in [place] who ordered extended release morphine for her but it made her itch and had vomiting so she quit taking it she ran out of her oxycodone 2 days ago when she cannot tolerate the pain now in her abdomen and also in her back. She is vomiting but that is pretty normal for her. She is not running any fever. She has an appointment scheduled this afternoon in [place] for the remainder of her CT work-up she just does not feel she can get there and the amount of pain she is in. She has nowhere else to turn because she does not have a primary care provider. 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 : None HEENT: Chronic sinusitis Psych: Depression, Anxiety Musculoskeletal: Fatigue, Chronic back pain Derm: None - Past Surgical History Past Surgical History: Yes General: Cholecystectomy Ortho: Spine surgery /COLUMNIST: section, Hysterectomy - Present Medications Home Medications: Ambulatory Orders Medication Instructions Recorded Confirmed Bacitracin Zinc Oint 28.4 gm TOP TID #1 tube 01/29/19 Fluconazole [Diflucan] 100 mg PO DAILY #5 tablet 01/29/19 Gabapentin 600 mg PO QID 01/29/19 01/29/19 Levofloxacin [Levaquin] 500 mg PO DAILY #21 tablet 01/29/19 Lidocaine Ointment 5% [Xylocaine 1 gm TOP TID #1 tube 01/29/19 Ointment 5%] Saccharomyces Boulardii [Florastor] 250 mg PO BID #90 capsule 01/29/19 buPROPion HCl [Zyban] 150 mg PO BID #60 tab.er.12h 01/29/19 oxyCODONE [Roxicodone] 5 mg PO Q4-6H #25 tablet 01/29/19 Docusate Sodium 100 mg PO DAILY #30 capsule 08/04/19 Famotidine 20 mg PO DAILY #30 tablet 08/04/19 Hydrocodone/Acetaminophen 1 each PO Q6H PRN #18 tablet 08/04/19 [Hydrocodon-Acetaminophen 5-325] Lidocaine Viscous 2% [Xylocaine 5 ml PO Q4H PRN #100 ml 08/04/19 Viscous 2%] Ondansetron Odt [Zofran] 4 mg TL Q6H PRN #15 tablet 08/04/19 Oxycodone HCl 5 - 15 mg PO Q4H PRN #20 tablet 10/01/19 Oxycodone HCl/Acetaminophen 1 - 2 each PO Q6HR #30 tablet 10/11/19 [Oxycodon-Acetaminophen 7.5-325] - Allergies Allergies/Adverse Reactions: Allergies Allergy/AdvReac Type Severity Reaction Status Date / Time No Known Drug Allergies Allergy Verified 10/11/19 10:19 - Social History Does the pt smoke?: Yes Smoking Status: Current every day smoker Does the pt drink ETOH?: No Does the pt have substance abuse?: No - Immunizations Immunizations are current?: Yes Immunizations: TDAP >10years/unknown - POLST Patient has POLST: No POLST Status: Full Code PD ED PE NORMAL - Vitals Vital signs reviewed: Yes - General General: Alert and oriented X 3, Other (Patient is rocking back and forth from side to side on the bed because of the pain in her abdomen. She looks uncomfortable. She is very thin.) - HEENT HEENT: PERRL, Other (No scleral icterus). No: Moist mucous membranes (Mucous membranes are dry) - Neck Neck: No adenopathy - Cardiac Cardiac: RRR, No murmur, Strong equal pulses - Respiratory Respiratory: No respiratory distress, Clear bilaterally - Abdomen Abdomen: Normal bowel sounds, Other (Abdomen is flat she has diffuse tenderness with guarding throughout the abdomen.) - Derm Derm: Normal color, Warm and dry, No rash - Extremities Extremities: No deformity, No edema - Neuro Neuro: Alert and oriented X 3, No motor deficit, No sensory deficit, Normal speech Results - Vitals Vitals: Vital Signs - 24 hr 10/11/19 10:19 Temperature 36.9 C Heart Rate 99 Respiratory 24 Rate Blood Pressure 176/86 H O2 Saturation 100 Oxygen O2 Source [Without Activity] 4L via NC O2 Source Room air PD MEDICAL DECISION MAKING - ED course Complexity details: reviewed old records, d/w patient ED course: Reviewed the patient's records she was indeed diagnosed with a pancreatic head carcinoma on CT scan here on 26 September. She is out of her pain medications and is still in the process of completing a work-up to see the oncologist and received the prior pain medications from someone in [place]. She wants to get to the appointment to have the CT scans done this afternoon. Do not feel that we need any acute testing at this time she was given an injection of Dilaudid and I am to give her a prescription for oxycodone and encouraged her to follow-up with the primary care provider for further pain management so that she can get the pain adequately controlled and we cannot provide continual narcotic prescriptions here from the emergency department. She stated understanding. Departure - Departure Disposition: Home, Self Care Clinical Impression: Abdominal pain Qualifiers: Abdominal location: generalized Qualified Code(s): R10.84 - Generalized abdominal pain Pancreatic cancer Qualifiers: Pancreatic malignancy location: head of pancreas Qualified Code(s): C25.0 - Malignant neoplasm of head of pancreas Instructions: Abdominal Pain Follow-Up: [facility] [Provider Group] Prescriptions: Oxycodone HCl/Acetaminophen [Oxycodon-Acetaminophen 7.5-325] 1 - 2 each PO Q6HR #30 tablet
[2019-10-11] MEDS ORDERED: PROMETHAZINE 25 MG/1 ML VIAL IM STA (12:48)
[2019-10-11] MEDS ORDERED: HYDROmorphone 1 MG/ML CARPUJECT IM STA (12:48)
[2019-10-11 13:17] VITALS: BP 138/95
== END 2019-10-11 13:18 | disposition home or self-care (01) ==
LOC: ED 10:10
DX: R10.84 Generalized abdominal pain (principal); M54.6 Pain in thoracic spine; R11.2 Nausea with vomiting, unspecified; C25.0 Malignant neoplasm of head of pancreas; F17.200 Nicotine dependence, unspecified, uncomplicated
CPT/HCPCS: 96374; 96375; 99283; 99284; J1170

== ENCOUNTER 2019-11-22 10:37 | Outpatient (CLI) | payer MEDICAID | END 2019-11-22 10:38 | disposition critical access hospital (66) | LOC: EMS 10:37 | PROVIDERS: ATTEND Surgery | DX: R46.4 Slowness and poor responsiveness (principal) | CPT/HCPCS: A0425; A0427; A0999 ==

== ENCOUNTER 2019-11-22 11:04 | Emergency (ER) | payer MEDICAID ==
[2019-11-22] MEDS ORDERED: SODIUM CHLORIDE 0.9% 1,000 ML IV ONE ×2 (11:17→11:48)
--- NOTE | 2019-11-22 11:18 | ED Physician Documentation ---
PD HPI ALTERED MENTAL STATUS - Stated complaint Stated Complaint: DEC LOC - History obtained from History obtained from: Patient, Family, EMS - History of Present Illness Timing - onset: Today Timing - duration: Hours Timing - details: Abrupt onset (unknown onset as patient was home alone for a while and family found her unresponsive with face down on table. Apparent had been sitting to eat. She had started chemo a week ago and not eating as much. Has been Rx pain meds of Morphine long acting and then Oxycodone 5 mg tabs in addition as needed. Family called 911 and told to start CPR since they could not tell about respirations. EMS says the patient was rousable to stimulus to open eyes. Patient said she has had difficulty remembering if took meds, so might have double doses on her pain meds. She says she has been feeling sleepy after taking the Morphine this past week anyway.) Quality / character: Unresponsive Associated symptoms: No: Fever, Headache, Dyspnea, Cough Contributing factors: Recent med change (started on long acting Morphine the past couple weeks.), Other (started chemo a week ago). 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 denies: Vomiting, Diarrhea : denies: Dysuria, Frequency Neurologic: reports: Generalized weakness Endocrine: reports: Weight loss. 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 HEENT: Chronic sinusitis Psych: Depression, Anxiety Musculoskeletal: Fatigue, Chronic back pain Derm: None - Past Surgical History Past Surgical History: Yes General: Cholecystectomy Ortho: Spine surgery /ASSISTANT ASSOCIATE PROFESSOR: section, Hysterectomy - Present Medications Home Medications: Ambulatory Orders Medication Instructions Recorded Confirmed Bacitracin Zinc Oint 28.4 gm TOP TID #1 tube 01/29/19 Fluconazole [Diflucan] 100 mg PO DAILY #5 tablet 01/29/19 Gabapentin 600 mg PO QID 01/29/19 01/29/19 Levofloxacin [Levaquin] 500 mg PO DAILY #21 tablet 01/29/19 Lidocaine Ointment 5% [Xylocaine 1 gm TOP TID #1 tube 01/29/19 Ointment 5%] Saccharomyces Boulardii [Florastor] 250 mg PO BID #90 capsule 01/29/19 buPROPion HCl [Zyban] 150 mg PO BID #60 tab.er.12h 01/29/19 oxyCODONE [Roxicodone] 5 mg PO Q4-6H #25 tablet 01/29/19 Docusate Sodium 100 mg PO DAILY #30 capsule 08/04/19 Famotidine 20 mg PO DAILY #30 tablet 08/04/19 Hydrocodone/Acetaminophen 1 each PO Q6H PRN #18 tablet 08/04/19 [Hydrocodon-Acetaminophen 5-325] Lidocaine Viscous 2% [Xylocaine 5 ml PO Q4H PRN #100 ml 08/04/19 Viscous 2%] Ondansetron Odt [Zofran] 4 mg TL Q6H PRN #15 tablet 08/04/19 Oxycodone HCl 5 - 15 mg PO Q4H PRN #20 tablet 10/01/19 Oxycodone HCl/Acetaminophen 1 - 2 each PO Q6HR #30 tablet 10/11/19 [Oxycodon-Acetaminophen 7.5-325] Oxycodone HCl/Acetaminophen 1 - 2 each PO Q6H PRN #16 tablet 11/22/19 [Percocet 5-325 mg Tablet] - Allergies Allergies/Adverse Reactions: Allergies Allergy/AdvReac Type Severity Reaction Status Date / Time No Known Drug Allergies Allergy Verified 11/22/19 11:22 - Social History Does the pt smoke?: Yes Smoking Status: Current every day smoker Does the pt drink ETOH?: No Does the pt have substance abuse?: No - Immunizations Immunizations are current?: Yes Immunizations: TDAP >10years/unknown - POLST Patient has POLST: No POLST Status: Full Code PD ED PE NORMAL - Vitals Vital signs reviewed: Yes - General General: No acute distress. No: Alert and oriented X 3 (sleepy but rousable to verbal and tactile. ), Well developed/nourished (frail and appears to have recent weight loss (thin and frail looking)) - HEENT HEENT: Ears normal, Pharynx benign - Neck Neck: Supple, no meningeal sign, No adenopathy - Cardiac Cardiac: RRR, No murmur - Respiratory Respiratory: Clear bilaterally - Abdomen Abdomen: Soft, Non tender - Back Back: No CVA TTP - Derm Derm: Normal color, Warm and dry - Extremities Extremities: No tenderness to palpate, No edema, No calf tenderness / cord - Neuro Neuro: ornamenter 2-12 intact, No motor deficit. No: Alert and oriented X 3 Eye Opening: To Voice Motor: Obeys Commands Verbal: Oriented GCS Score: 14 - Psych Psych: Normal mood Results - Vitals Vitals: Vital Signs - 24 hr 11/22/19 11/22/19 11/22/19 11:22 11:36 13:05 Temperature 36.9 C Heart Rate 82 75 86 Respiratory 14 10 L 18 Rate Blood Pressure 99/66 89/61 L 146/86 H O2 Saturation 99 99 100 Oxygen O2 Source [Without Activity] 4L via NC O2 Source Room air - Labs Labs: Laboratory Tests 11/22/19 11/22/19 11/22/19 11:22 11:22 11:22 WBC 9.8 RBC 3.63 L Hgb 11.9 L Hct 36.6 L MCV 100.8 H MCH 32.8 H MCHC 32.5 RDW 13.1 Plt Count 270 MPV 8.8 Neut # (Auto) 7.5 H Lymph # (Auto) 2.1 [place] # (Auto) 0.1 Eos # (Auto) 0.1 Baso # (Auto) 0.1 Absolute Nucleated RBC 0.00 Nucleated RBC % 0.0 Sodium 140 Potassium 3.5 Chloride 108 Carbon Dioxide 24 Anion Gap 8.0 BUN 9 Creatinine 0.9 Estimated GFR (MDRD) 65 L Glucose 194 H Calcium 8.7 Magnesium 1.9 Total Bilirubin 0.5 AST 22 ALT 24 Alkaline Phosphatase 89 Total Protein 6.6 L Albumin 3.5 Globulin 3.1 Albumin/Globulin Ratio 1.1 Lipase 20 L TSH 1.71 Salicylates < 6.0 Acetaminophen < 10 L Ethyl Alcohol < 5.0 PD MEDICAL DECISION MAKING - ED course Complexity details: re-evaluated patient (remaining alert and conversant for 3 hours after Narcan. It should be worn off and still doing okay, so narcotic effect seems to be diminished enough for patient to be okay.), considered differential (sleepy and constricted pupils. History seems likely unintentional narcotic overdose. Given Narcan in ER and improved. ), d/w patient ED course: Has combo of Morphine and Percocet. Had possibly double dose unintentionally per patient. Will have her hold the Morphine tablets and just use the Oxycodone short acting. She says she would run out before next appt, which is next week, if she did that. I told her I would give Rx for the Percocet for 2-3 days, so she can contact her Oncology regarding meds. She is also interested in moving her Oncology from [place] to closer, such as [place] with clinics here in [place]. Departure - Departure Disposition: 01 Home, Self Care Clinical Impression: Altered mental status Qualifiers: Altered mental status type: somnolence Qualified Code(s): R40.0 - Somnolence Opiate or related narcotic overdose Qualifiers: Encounter type: initial encounter Injury intent: accidental or unintentional Qualified Code(s): T40.601A - Poisoning by unspecified narcotics, accidental (unintentional), initial encounter Condition: Stable Record reviewed to determine appropriate education?: Yes Instructions: ED Overdose Accidental Follow-Up: Deann García MD [Provider Admit Priv/Credential] - Prescriptions: Oxycodone HCl/Acetaminophen [Percocet 5-325 mg Tablet] 1 - 2 each PO Q6H PRN #16 tablet PRN Reason: pain Comments: Stay well-hydrated. For now do not use the morphine but just the oxycodone itself. Continue the dose of 1-2 every 6-8 hours. Call your oncologist tomorrow about follow-up visits or further medications or refills. I have put down the name of 1 of the oncologists out of [place] and they do clinics here. If that is more convenient for you than [place], then discussed with your oncologist there about moving your records down. Call to see if the [place] oncology physicians are able to accept your insurance and all that first however. Discharge Date/Time: 11/22/19 14:41
[2019-11-22 11:29] LABS: BASOPHILS # (AUTO) 0.1 10^3/uL (0.0-0.1); BASOPHILS % (AUTO) 0.6 %; EOSINOPHILS # (AUTO) 0.1 10^3/uL (0.0-0.7); EOSINOPHILS % (AUTO) 0.8 %; HGB - HEMOGLOBIN 11.9 g/dL (12.0-16.0); LYMPHOCYTES # (AUTO) 2.1 10^3/uL (1.5-3.5); LYMPHOCYTES % (AUTO) 21.2 %; MEAN CORPUSCULAR HEMOGLOBIN 32.8 pg (27.0-31.0); MEAN CORPUSCULAR HGB CONC 32.5 g/dL (32.0-36.0); MEAN CORPUSCULAR VOLUME 100.8 fL (81.0-99.0); MEAN PLATELET VOLUME 8.8 fL (7.9-10.8); MONOCYTES # (AUTO) 0.1 10^3/uL (0.0-1.0); MONOCYTES % (AUTO) 0.9 %; NEUTROPHILS # (AUTO) 7.5 10^3/uL (1.5-6.6); PLT - PLATELET COUNT 270 10^3/uL (130-450); RED BLOOD COUNT 3.63 10^6/uL (4.20-5.40); RED CELL DISTRIBUTION WIDTH 13.1 % (12.0-15.0); WHITE BLOOD COUNT 9.8 x10^3/uL (4.8-10.8)
--- NOTE | 2019-11-22 11:42 | XRAY Report ---
Reason: chest pain Procedure Date: 11/22/2019 Accession Number: [id number] / [id number] Procedure: XR - Chest 1 View X-Ray CPT Code: 74067 Final Report FULL RESULT: EXAM: CHEST RADIOGRAPHY EXAM DATE: 11/22/2019 11:35 AM. CLINICAL HISTORY: Chest pain. COMPARISON: CHEST 1 VIEW 01/28/2019 2:38 PM ABDOMEN/PELVIS W/ 09/26/2019 5:48 PM. TECHNIQUE: 1 view. FINDINGS: Lungs/Pleura: Increased lung markings. No focal opacities. No effusions Mediastinum: Stable Other: Right-sided Port-A-Cath with the catheter tip in the superior vena cava. Spinal electrodes. Common bile duct stent. Cholecystectomy suspected. IMPRESSION: 1. Stable chest. 2. Increased lung markings, suspect airways disease RADIA
[2019-11-22] MEDS ORDERED: NALOXONE 0.4 MG/ML VIAL IVP STA (11:44)
[2019-11-22 11:47] LABS: ACETAMINOPHEN < 10 ug/mL (10-30); ALBUMIN 3.5 g/dL (3.2-5.5); ALBUMIN/GLOBULIN RATIO 1.1 (1.0-2.2); ALKALINE PHOSPHATASE 89 IU/L (42-121); ALT ALANINE AMINOTRANSFERASE 24 IU/L (10-60); AST ASPARTATE AMINOTRANSFERASE 22 IU/L (10-42); BILIRUBIN,TOTAL 0.5 mg/dL (0.2-1.0); BUN - BLOOD UREA NITROGEN 9 mg/dL (6-20); CALCIUM 8.7 mg/dL (8.5-10.3); CARBON DIOXIDE - CO2 24 mmol/L (21-32); CHLORIDE 108 mmol/L (101-111); CREATININE 0.9 mg/dL (0.4-1.0); GFR - MDRD 65 (>89); GLUCOSE 194 mg/dL (70-100); LIPASE 20 U/L (22-51); MAGNESIUM 1.9 mg/dL (1.7-2.8); SALICYLATE < 6.0 mg/dL; SODIUM 140 mmol/L (135-145); TOTAL PROTEIN 6.6 g/dL (6.7-8.2)
[2019-11-22 14:23] VITALS: BP 146/86
== END 2019-11-22 14:41 | disposition home or self-care (01) ==
LOC: EDUNIT# → ED 11:04
DX: R40.0 Somnolence (principal); T50.904A Poisoning by unspecified drugs, medicaments and biological substances, undetermined, initial encounter; F17.200 Nicotine dependence, unspecified, uncomplicated
CPT/HCPCS: 36415; 71045; 80053; 80307; 80320; 80329; 83690; 83735; 84443; 85025; 93005; 96361; 96374; 99284

== ENCOUNTER 2019-12-01 13:13 | Emergency (ER) | payer MEDICAID ==
[2019-12-01 13:25] VITALS: BP 149/116
--- NOTE | 2019-12-01 13:37 | ED Physician Documentation ---
<Josafat Khanna M - Last Filed: 12/01/19 13:44> History of Present Illness - Stated complaint Stated Complaint: MED REFILL - Chief complaint Chief Complaint: General - History obtained from History obtained from: Patient (54-year-old woman with metastatic pancreatic cancer is between oncologist right now because she lacked transportation to get to the one in [place]. She has an appointment with the [facility] clinic on the but needs refills of her medications until then. No acute complaints.) Review of Systems Constitutional: reports: Weight Loss. denies: Fever, Chills GI: reports: Abdominal Pain. denies: Nausea, Vomiting, Diarrhea PD PAST MEDICAL HISTORY - Present Medications Home Medications: Ambulatory Orders Medication Instructions Recorded Confirmed Bacitracin Zinc Oint 28.4 gm TOP TID #1 tube 01/29/19 Fluconazole [Diflucan] 100 mg PO DAILY #5 tablet 01/29/19 Gabapentin 600 mg PO QID 01/29/19 01/29/19 Levofloxacin [Levaquin] 500 mg PO DAILY #21 tablet 01/29/19 Lidocaine Ointment 5% [Xylocaine 1 gm TOP TID #1 tube 01/29/19 Ointment 5%] Saccharomyces Boulardii [Florastor] 250 mg PO BID #90 capsule 01/29/19 buPROPion HCl [Zyban] 150 mg PO BID #60 tab.er.12h 01/29/19 oxyCODONE [Roxicodone] 5 mg PO Q4-6H #25 tablet 01/29/19 Docusate Sodium 100 mg PO DAILY #30 capsule 08/04/19 Famotidine 20 mg PO DAILY #30 tablet 08/04/19 Hydrocodone/Acetaminophen 1 each PO Q6H PRN #18 tablet 08/04/19 [Hydrocodon-Acetaminophen 5-325] Lidocaine Viscous 2% [Xylocaine 5 ml PO Q4H PRN #100 ml 08/04/19 Viscous 2%] Ondansetron Odt [Zofran] 4 mg TL Q6H PRN #15 tablet 08/04/19 Oxycodone HCl 5 - 15 mg PO Q4H PRN #20 tablet 10/01/19 Oxycodone HCl/Acetaminophen 1 - 2 each PO Q6HR #30 tablet 10/11/19 [Oxycodon-Acetaminophen 7.5-325] Oxycodone HCl/Acetaminophen 1 - 2 each PO Q6H PRN #16 tablet 11/22/19 [Percocet 5-325 mg Tablet] Losartan [Cozaar] 50 mg PO DAILY #30 tablet 12/01/19 Metoclopramide [Reglan] 10 mg PO Q6H PRN #60 tablet 12/01/19 Ondansetron Odt [Zofran] 4 mg TL Q6H PRN #30 tablet 12/01/19 Zolpidem [Ambien] 5 mg PO HS #14 tablet 12/01/19 oxyCODONE [Roxicodone] 5 mg PO Q6H PRN #30 tablet 12/01/19 - Allergies Allergies/Adverse Reactions: Allergies Allergy/AdvReac Type Severity Reaction Status Date / Time morphine Allergy Respiratory Verified 12/01/19 13:25 PD ED PE NORMAL - Vitals Vital signs reviewed: Yes - General General: Alert and oriented X 3, No acute distress - Derm Derm: Normal color, Warm and dry - Extremities Extremities: No edema, No calf tenderness / cord - Neuro Neuro: Alert and oriented X 3, No motor deficit, No sensory deficit, Normal speech PD MEDICAL DECISION MAKING - ED course ED course: 54-year-old woman with metastatic cancer is between doctors right now and needs refills of her meds. Discussed with her the at least the oxycodone would need to be limited, she is taking about 8 a day, I discussed with her that it would not be feasible to give her that many from the emergency department but a few is reasonable pending her follow-up given her active cancer. Departure - Departure Disposition: 01 Home, Self Care Clinical Impression: Pancreatic cancer Qualifiers: Pancreatic malignancy location: unspecified Qualified Code(s): C25.9 - Malignant neoplasm of pancreas, unspecified Condition: Good Record reviewed to determine appropriate education?: Yes Prescriptions: Losartan [Cozaar] 50 mg PO DAILY #30 tablet Metoclopramide [Reglan] 10 mg PO Q6H PRN #60 tablet PRN Reason: nausea or headache Ondansetron Odt [Zofran] 4 mg TL Q6H PRN #30 tablet PRN Reason: Nausea / Vomiting oxyCODONE [Roxicodone] 5 mg PO Q6H PRN #30 tablet PRN Reason: Pain Zolpidem [Ambien] 5 mg PO HS #14 tablet Comments: The policy of this emergency department is to not give more than 3 prescriptions for narcotics or other controlled substances in any 1 year. You have already surpassed this benchmark and we cannot prescribe narcotics for you. I encourage you to follow up with your primary care physician or to establish care with a primary care physician for ongoing pain management. You are always welcome to seek emergency care here for this or new issues but there will likely be limitations in the prescription of narcotic pain medication. 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 : None HEENT: Chronic sinusitis Psych: Depression, Anxiety Musculoskeletal: Fatigue, Chronic back pain Derm: None - Past Surgical History Past Surgical History: Yes General: Cholecystectomy Ortho: Spine surgery /GARNETT MACHINE OPERATOR: section, Hysterectomy - Social History Does the pt smoke?: Yes Smoking Status: Current every day smoker Does the pt drink ETOH?: No Does the pt have substance abuse?: No - Immunizations Immunizations are current?: Yes Immunizations: TDAP >10years/unknown - POLST Patient has POLST: No POLST Status: Full Code Results - Vitals Vitals: Oxygen O2 Source [Without Activity] 4L via NC O2 Source Room air
== END 2019-12-01 14:07 | disposition home or self-care (01) ==
LOC: ED 13:13
DX: C25.9 Malignant neoplasm of pancreas, unspecified (principal); C79.9 Secondary malignant neoplasm of unspecified site; Z76.0 Encounter for issue of repeat prescription; F17.200 Nicotine dependence, unspecified, uncomplicated
CPT/HCPCS: 99281; 99283

== ENCOUNTER 2019-12-26 14:19 | Outpatient (CLI) | payer MEDICAID ==
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
== END 2019-12-26 14:20 | disposition home or self-care (01) ==
LOC: PC 14:19
PROVIDERS: ATTEND Nurse Practitioner Adult Health
DX: Z51.5 Encounter for palliative care (principal); G89.3 Neoplasm related pain (acute) (chronic); R53.1 Weakness; R11.2 Nausea with vomiting, unspecified; R19.7 Diarrhea, unspecified; R53.83 Other fatigue; R63.0 Anorexia; T45.1X5A Adverse effect of antineoplastic and immunosuppressive drugs, initial encounter; R63.4 Abnormal weight loss; G62.9 Polyneuropathy, unspecified; E11.9 Type 2 diabetes mellitus without complications; F41.9 Anxiety disorder, unspecified; F17.210 Nicotine dependence, cigarettes, uncomplicated; C78.00 Secondary malignant neoplasm of unspecified lung; C25.0 Malignant neoplasm of head of pancreas; Z79.899 Other long term (current) drug therapy; Z79.891 Long term (current) use of opiate analgesic; Z79.4 Long term (current) use of insulin; Z87.828 Personal history of other (healed) physical injury and trauma; Z59.8 Other problems related to housing and economic circumstances; Z96.82 Presence of neurostimulator
CPT/HCPCS: 99345

== ENCOUNTER 2019-12-28 15:04 | Outpatient (CLI) | payer MEDICAID | END 2019-12-28 15:05 | disposition home or self-care (01) | LOC: COV 15:04 | PROVIDERS: ATTEND Internal Medicine Hematology & Oncology | DX: R50.9 Fever, unspecified (principal) | CPT/HCPCS: 81599 ==

== ENCOUNTER 2020-01-11 13:44 | Outpatient (CLI) | payer MEDICAID ==
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
== END 2020-01-11 13:45 | disposition home or self-care (01) ==
LOC: PC 13:44
PROVIDERS: ATTEND Nurse Practitioner Adult Health
DX: Z51.5 Encounter for palliative care (principal); G89.3 Neoplasm related pain (acute) (chronic); R53.1 Weakness; R53.0 Neoplastic (malignant) related fatigue; R63.0 Anorexia; R68.81 Early satiety; G62.9 Polyneuropathy, unspecified; E11.9 Type 2 diabetes mellitus without complications; C78.7 Secondary malignant neoplasm of liver and intrahepatic bile duct; C78.00 Secondary malignant neoplasm of unspecified lung; C25.0 Malignant neoplasm of head of pancreas; Z79.899 Other long term (current) drug therapy; Z79.4 Long term (current) use of insulin; Z79.891 Long term (current) use of opiate analgesic; Z72.820 Sleep deprivation; Z87.828 Personal history of other (healed) physical injury and trauma; Z59.8 Other problems related to housing and economic circumstances
CPT/HCPCS: 99215

== ENCOUNTER 2020-01-18 13:06 | Outpatient (CLI) | payer MEDICAID | END 2020-01-18 13:07 | disposition home or self-care (01) | LOC: PC 13:06 | PROVIDERS: ATTEND Nurse Practitioner Adult Health | DX: Z53.9 Procedure and treatment not carried out, unspecified reason (principal) ==

== ENCOUNTER 2020-01-20 13:23 | Outpatient (CLI) | payer MEDICAID ==
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
== END 2020-01-20 13:24 | disposition home or self-care (01) ==
LOC: PC 13:23
PROVIDERS: ATTEND Nurse Practitioner Adult Health
DX: Z51.5 Encounter for palliative care (principal); G89.3 Neoplasm related pain (acute) (chronic); E11.9 Type 2 diabetes mellitus without complications; F41.8 Other specified anxiety disorders; N39.0 Urinary tract infection, site not specified; K59.03 Drug induced constipation; T40.2X5A Adverse effect of other opioids, initial encounter; C25.9 Malignant neoplasm of pancreas, unspecified; C78.7 Secondary malignant neoplasm of liver and intrahepatic bile duct; C78.00 Secondary malignant neoplasm of unspecified lung; Z79.891 Long term (current) use of opiate analgesic; Z79.899 Other long term (current) drug therapy; Z79.4 Long term (current) use of insulin; Z63.8 Other specified problems related to primary support group; Z59.8 Other problems related to housing and economic circumstances
CPT/HCPCS: 99215